=== PATIENT | female | born 1990 | race Caucasian/White ===

== ENCOUNTER 2021-05-02 12:16 | Outpatient (REF) | payer OTHER, SELFPAY ==
[2021-05-02 15:47] LABS: Alanine Aminotransferase 17 U/L (0-31); Anion Gap 15 (12-20); Aspartate Amino Transferase 18 U/L (5-31); Blood Urea Nitrogen 9 mg/dL (9-16); Calcium 9.3 mg/dL (8.4-10.2); Carbon Dioxide 25 mmol/L (22-29); Chloride 103 mmol/L (96-108); Cholesterol 178 mg/dL; Estimated Average Glucose 117 mg/dL; Estimated Glomerular Filt Rate > 60; Glucose Fasting 100 mg/dL (60-99); HDL Cholesterol 52 mg/dL; Hemoglobin A1c % 5.7 %; LDL Cholesterol Calculated 102 mg/dl; Potassium 4.6 mmol/L (3.3-5.1); Sodium 138 mmol/L (135-145); Triglycerides 120 mg/dL
[2021-05-02 16:11] LABS: Vitamin D 25-OH Total 32.1 ng/mL (>30)
== END 2021-05-02 12:17 | disposition home or self-care (01) ==
LOC: HO.HMGCLDS 12:16
PROVIDERS: PCP Internal Medicine; Visit Provider Internal Medicine
DX: Z00.00 Encounter for general adult medical examination without abnormal findings (principal); E66.9 Obesity, unspecified; I10 Essential (primary) hypertension; R73.01 Impaired fasting glucose
CPT/HCPCS: 36415; 80048; 80061; 82306; 83036; 84450; 84460

== ENCOUNTER 2021-09-12 12:56 | Outpatient (REF) | payer OTHER, SELFPAY ==
--- NOTE | ~2021-09-12 | XR_ITS ---
EXAMINATION: XR CHEST CLINICAL INFORMATION: R05.9 - Cough, unspecified COMPARISON: None TECHNIQUE: 2 views of the chest were obtained. FINDINGS: The lungs are clear. There is no airspace consolidation or groundglass opacity or effusion. The costophrenic sulci are well-defined. The heart is normal in size. The hilar and mediastinal contours and visualized bony structures are unremarkable. XR/XR chest 2V IMPRESSION: Unremarkable examination.
== END 2021-09-12 12:57 | disposition home or self-care (01) ==
LOC: HO.HMGCX 12:56
PROVIDERS: PCP Internal Medicine; Visit Provider Physician Assistant Medical
DX: R05.9 Cough, unspecified (principal)
CPT/HCPCS: 71046

== ENCOUNTER 2021-09-12 13:42 | Outpatient (REF) | payer OTHER, SELFPAY ==
[2021-09-12 17:19] LABS: Influenza A PCR NEGATIVE (Negative); Influenza B PCR NEGATIVE (Negative); Resp Syncy Virus RNA Qual PCR NEGATIVE (Negative); SARS COV2 PCR INHOUSE NEGATIVE (Negative)
== END 2021-09-12 13:43 | disposition home or self-care (01) ==
LOC: HO.LAB 13:42
PROVIDERS: Visit Provider Physician Assistant Medical
DX: Z20.822 Contact with and (suspected) exposure to COVID-19 (principal); J06.9 Acute upper respiratory infection, unspecified; R05.9 Cough, unspecified
CPT/HCPCS: 0241U; 36415

== ENCOUNTER 2022-05-04 11:59 | Outpatient (REF) | payer OTHER, SELFPAY ==
[2022-05-04 13:44] LABS: MANUAL DIFF FLAG NO
[2022-05-04 13:57] LABS: Basophils Absolute Auto 0.1 X10*3/uL (0.0-0.2); Basophils Percent Auto 0.6 % (0-2); Eosinophils Absolute Auto 0.2 X10*3/uL (0.0-0.4); Eosinophils Percent Auto 1.8 % (0-4); Hematocrit 36.7 % (37.0-47.0); Hemoglobin 12.1 g/dl (12.0-16.0); Imm Gran Abs Auto 0.05 X10*3/uL (0.00-0.03); Imm Gran Pct Auto 0.5 % (0.0-0.4); Lymphocytes Percent Auto 28.6 % (20-40); Mean Corpuscular Hemoglobin 28.5 pg (27.0-33.0); Mean Corpuscular Volume 86.4 fL (80.0-98.0); Mean Platelet Volume 11.6 fL (9.4-12.3); Monocytes Absolute Auto 0.6 X10*3/uL (0.1-1.2); Monocytes Percent Auto 5.5 % (2-11); Neutrophils Absolute Auto 6.5 x10*3/uL (2.0-8.3); Platelet Count 363 X10*3/uL (160-400); Red Blood Count 4.25 X10*6/uL (4.20-5.50); Red Cell Distribution Width 11.7 % (11.0-16.0); White Blood Count 10.4 X10*3/uL (4.8-10.8)
[2022-05-04 14:05] LABS: Estimated Average Glucose 123 mg/dL; Hemoglobin A1c % 5.9 %
[2022-05-04 14:22] LABS: Alanine Aminotransferase 17 U/L (0-31); Anion Gap 11 (12-20); Aspartate Amino Transferase 20 U/L (5-31); Blood Urea Nitrogen 9 mg/dL (9-16); Calcium 8.9 mg/dL (8.4-10.2); Carbon Dioxide 26 mmol/L (22-29); Chloride 106 mmol/L (96-108); Cholesterol 167 mg/dL; Estimated Glomerular Filt Rate > 60; Glucose Fasting 97 mg/dL (60-99); HDL Cholesterol 42 mg/dL; LDL Cholesterol Calculated 102 mg/dl; Potassium 4.3 mmol/L (3.3-5.1); Sodium 139 mmol/L (135-145); Triglycerides 117 mg/dL
[2022-05-06 11:36] LABS: Follicle Stimulating Hormone 2.8 mIU/mL; Lutenizing Hormone 1.7 mIU/mL
== END 2022-05-04 12:00 | disposition home or self-care (01) ==
LOC: HO.HMGCLDS 11:59
PROVIDERS: PCP Internal Medicine; Visit Provider Internal Medicine
DX: Z00.01 Encounter for general adult medical examination with abnormal findings (principal); R00.0 Tachycardia, unspecified; E66.09 Other obesity due to excess calories; R73.01 Impaired fasting glucose; N92.6 Irregular menstruation, unspecified; F41.8 Other specified anxiety disorders; Z68.36 Body mass index [BMI] 36.0-36.9, adult
CPT/HCPCS: 36415; 80048; 80061; 83001; 83002; 83036; 84443; 84450; 84460; 85025

== ENCOUNTER 2024-04-27 07:42 | Outpatient (AMB) | payer OTHER, SELFPAY ==
--- NOTE | 2024-04-27 07:55 | MHC.PC.OV ---
Vital Signs 04/27/24 07:56 Height 5 ft 3 in Weight 222 lb BMI 39.3 BP 118/86 Blood Pressure Location Rt brachial Position Sitting Pulse 110 H Pulse Source Pulse Oximeter Pulse Oximetry (%) 98 Oxygen Delivery Method Room Air Intake Visit Reasons: Physical Exam Intake Note: Pt is here today for her PE: last papsmear 01/14/24 Is last menstrual period known: Yes Last menstrual period: 04/23/24 Allergies aripiprazole [From Abilify] Adverse Reaction (Verified 04/27/24 08:14) Insomnia Medication List - Last Reconciled 04/27/24 by Dunia Sebastian MD drospirenone-e.estradiol-lm.FA 3-0.02-0.451 mg (24) (4) 1 tab PO DAILY fluvoxamine 100 mg PO BEDTIME multivitamin 1 tab PO DAILY psyllium husk (Metamucil) 0.4 grams PO DAILY quetiapine mg PO Saccharomyces boulardii (Daily Probiotic (S. boulardii)) 250 mg PO BID sodium fluoride-pot nitrate 1.1-5 % PO Tobacco use date assessed: 04/27/24 Dental Screening Dental Screen Date: 04/27/24 Did you have a dental visit in the last 12 months?: Yes Did you have a dental problem in the last 6 months where you did not have access to dental care?: Yes Was dental information given to patient?: Patient has dentist HPI Physical Exam HPI Details 34-year-old lady here today for physical exam. She has history of impaired fasting glucose, obesity, generalized anxiety disorder, followed by her Psychiatrist, Joann sheffield. She is up-to-date with her screening for cervical cancer, last Pap done 12/2023 by Rani Skelton CNM at [facility].. She still has been having severe pain and discomfort when having vaginal exam, she has been referred by her [facility] to see Magdalena mancera , a Pelvic Floor Physical Therapist at [facility] . She also has a lesion on her nose which has been present for the last several months and seems to be changing in appearance. She also has been having appearance of several painful skin tags usually in armpits, which she would like to have checked. Requesting a referral to [facility] Medical History (Updated 04/28/24 @ 02:55 by Dunia Sebastian MD) Elevated fasting glucose Generalized anxiety disorder Chronic pelvic pain syndrome in female Menstrual periods irregular Tachycardia Impaired fasting glucose Obesity History of urinary urgency Surgical History No pertinent past surgical history Family History Father Depression Substance use disorder Mental health disorder Sister Depression Mental health disorder Maternal Grandmother Depression Mental health disorder Maternal Grandfather Diabetes mellitus Social History (Updated 04/30/24 @ 05:10 by Dunia Sebastian MD) Housing: Apartment Alcohol intake: current Patient Tobacco Use Status: Never used Tobacco e-Cigarette/Vaping Use: Never Used service: No Current occupational status: employed Current occupation: [employer] Current occupational exposures/hazards: No Cognitive needs: No Hearing needs: No Vision needs: No Female Reproductive History Menstrual Date of last menstrual period: 04/23/24 Date of last pap smear: 01/14/24 Questionnaire PHQ-9 Over the last 2 weeks, how often have you been bothered by any of the following problems? 1. Little interest or pleasure in doing things: not at all 2. Feeling down, depressed, or hopeless: not at all 3. Trouble falling or staying asleep, or sleeping too much: several days 4. Feeling tired or having little energy: several days 5. Poor appetite or overeating: several days 6. Feeling bad about yourself - or that you are a failure or have let yourself or your family down: not at all 7. Trouble concentrating on things, such as reading the newspaper or watching television: not at all 8. Moving or speaking so slowly that other people could have noticed. Or the opposite - being so fidgety or restless that you have been moving around a lot more than usual: not at all 9. Thoughts that you would be better off or of hurting yourself in some way: not at all Total score: 3 Depression Screening Interpretation: Negative Depression Screening Done: Yes 14982 - PHQ-9 Billing: Yes Source: Developed by Drs. Jerzy Holguin, Tanisha Babin, Froylan Joshi and colleagues, with an educational tammi from [employer]. Thrive Questionnaire Date Thrive assessed: 04/27/24 I am a: Patient What is your living situation today?: I have a steady place to live Within the past 12 months, did the food you bought not last and you didn't have the money to get more?: Never true Within the past 12 months, did you worry whether your food would run out before you got money to buy more?: Never true Do you have trouble paying for medicines?: No Do you have trouble getting transportation to medical appointments?: No Do you have trouble paying your heating and electricity bill?: No Do you have trouble taking care of your child, family member or friend?: No Do you have trouble with day-to-day activities such as bathing, preparing meals, shopping, managing finances, etc.?: No Are you currently unemployed and looking for a job?: No Are you interested in more education?: No THRIVE Score: 0 AUDIT C Alcohol Use Questionnaire (AUDIT-C) 1. How often do you have a drink containing alcohol?: Never Total Score: 0 BARBRA-7 AMB Questionnaire BARBRA-7 Date BARBRA - 7 assessed: 04/27/24 Feeling nervous, anxious, or on edge: 2 = More than half the days Not being able to stop or control worryin = Several days Worrying too much about different things: 1 = Several days Trouble relaxin = Several days Being so restless that it is hard to sit still: 0 = Not at all Becoming easily annoyed or irritable: 1 = Several days Feeling afraid as if something awful might happen: 1 = Several days Total BARBRA-7 score (0-4 normal; 5-9 mild; 10-14 moderate; 15-21 severe): 7 Source: Developed by Drs. Jerzy Holguin, Froylan Nichole and colleagues, with an educational tammi from [employer]. BARBRA-7 Assessment Billing BARBRA-7 Assessment Tool: BARBRA-7 Assessment 57009 (followed by psychiatry) Review of Systems Const Denies body aches, Denies fatigue, Denies fever(s), Denies headache(s) and Denies weakness Eyes Denies change in vision, Denies eye discharge and Denies itchy eyes ENT Denies dizziness, Denies headache(s), Denies nasal congestion, Denies nasal discharge and Denies sore throat Card Denies chest pain, Denies lightheadedness, Denies palpitations (only when going to doctor's appointments ) and Denies dyspnea Resp Denies chest congestion, Denies cough, Denies dyspnea and Denies wheezing GI Denies abdominal pain, Denies change in bowel habits and Denies heartburn Denies hematuria, Denies urinary frequency, Denies dysuria and Denies urinary urgency Musc Reports no additional complaints Skin/Breast Reports as per HPI, Denies breast pain, Denies breast mass, Denies lesions and Denies rash Neuro Denies dizziness, Denies headache(s) and Denies weakness Psych Reports as per HPI Endo Denies fatigue, Denies polydipsia, Denies polyuria and Denies palpitations (only when going to doctor's appointments ) Sathish/Lymph Denies easy bruising Aller/Immun Denies itchy eyes, Denies seasonal rhinorrhea and Denies wheezing Physical exam (Primary Care) Vital Signs: Last Vital Signs Pulse 110 H 04/27/24 07:56 BP 118/86 04/27/24 07:56 Pulse Ox 98 04/27/24 07:56 Oxygen Delivery Method Room Air 04/27/24 07:56 BMI result Body Mass Index 39.3 Tobacco/Smoking Status: Tobacco use Status Tobacco use date assessed 04/27/24 04/27/24 08:01 Patient Tobacco Use Status Never used Tobacco 04/27/24 07:56 e-Cigarette/Vaping Use Never Used 04/27/24 07:56 PHQ-9: PHQ-9 Score PHQ-9: Total score 3 04/27/24 08:35 Depression Screening Interpretation: Negative Thrive Assessment: Date of Thrive Assessment Date Thrive assessed 04/27/24 04/27/24 08:08 Const General: cooperative, comfortable and no acute distress Nutritional Appearance: obese Orientation/consciousness: patient oriented x3 HENMT Ears: hearing grossly normal bilaterally, external ears normal, TM's normal bilaterally and EAC's normal General nose exam: Normal external nose present and No nasal discharge present Mouth: Normal oral and palatal mucosa present, oropharynx normal and moist mucous membranes Throat: Yes posterior oropharynx normal Eyes General: appearance normal, both eyes and all related structures Conjunctivae: conjunctivae normal Pupils: Equal, round and reactive pupils present EOM: EOMs intact bilaterally Neck Neck: Yes full ROM, Yes no lymphadenopathy and Yes supple Chest Chest palpation & inspection: normal inspection of the chest Breast/axilla inspection: normal inspection of the breasts Breast/axilla palpation: normal palpation of the breasts Resp Effort & Inspection: normal respiratory effort and able to speak in complete sentences Auscultation: clear to auscultation bilaterally Cardio Rate: regular rate Rhythm: regular rhythm Heart sounds: S1 normal heart sound present and S2 normal heart sound present GI Inspection: Yes normal to inspection Palpation (GI): Soft to palpation, nontender and no masses Auscultation: normal bowel sounds General: Yes deferred Back/Spine/Pelvis Cervical Spine: cervical ROM normal Thoracic/Lumbar Spine: thoracic and lumbar spine normal to inspection Skin Other: Slightly raised lesion on nose Neuro General: patient oriented x3, gait normal, tone normal, moves all extremities, Normal light touch and pain sensation and no focal motor deficits Cranial nerves: Yes Equal, round and reactive pupils present Cognition (Neuro): normal cognition Gait exam (Neuro): Normal gait present Motor exam (neuro): 5/5 motor strength present throughout Extrem General: Yes normal to inspection, Yes full ROM, Yes no joint enlargement, Yes no pedal edema and Yes normal gait Psych Appearance: grossly normal Mental Status: mental status grossly normal Speech and movement: Normal speech and movement present Affect: normal affect Attitude: cooperative Thought process: Normal thought process present Assessment and Plan Assessment & Plan (1) Chronic pelvic pain syndrome in female: Code(s): R10.2 - Pelvic and perineal pain; G89.29 - Other chronic pain Plan: Referral made to see pelvic floor physical therapist , Magdalena Mancera at [facility] (2) Obesity: Code(s): E66.9 - Obesity, unspecified Qualifiers: Body mass index: BMI 36.0-36.9 Obesity classification: adult class 2 (BMI 35 - 39.9) Obesity type: due to excess calories Serious obesity comorbidity presence: without serious comorbidity Qualified Code(s): E66.09 - Other obesity due to excess calories; Z68.36 - Body mass index [BMI] 36.0-36.9, adult Plan: Referred to vacuum caster for guidance with diet help with weight loss (3) Tachycardia: Code(s): R00.0 - Tachycardia, unspecified Plan: Self-limited, only occurs during doctor's appointment (4) Generalized anxiety disorder: Code(s): F41.1 - Generalized anxiety disorder Plan: Currently on fluvoxamine, quetiapine, , followed by Joann Sheffield (5) Annual visit for general adult medical examination with abnormal findings: Code(s): Z00.01 - Encounter for general adult medical examination with abnormal findings Plan: Will check appropriate labs. Continue regular dental visit every 6 months and regular eye exams, at least every 2 years. Take adequate calcium in diet and vitamin-D 3 at 2000 IU per cap once a day, in addition to weight-bearing exercises to help maintain good muscle tone and weight control. Instructed to do self-breast exam, and recommended to get yearly mammogram, starting at age 40. Up-to-date with her vaccinations, gets yearly flu shots (6) Immunity status testing: Code(s): Z01.84 - Encounter for antibody response examination Plan: Will check hepatitis-B surface antibody titer (7) Lesion of skin of nose: Code(s): L98.9 - Disorder of the skin and subcutaneous tissue, unspecified Plan: Dermatology consult ordered (8) Screening for Malignant Neoplasm of Skin: Code(s): Z12.83 - Encounter for screening for malignant neoplasm of skin Plan: Dermatology consult ordered (9) Inflamed skin tag: Code(s): L91.8 - Other hypertrophic disorders of the skin Plan: Dermatology consult ordered Orders: Orders Comprehensive [place]. Panel Fast 04/27/24 E66.09 - Other obesity due to excess calories, F41.1 - Generalized anxiety disorder, G89.29 - Other chronic pain, R00.0 - Tachycardia, unspecified, R10.2 - Pelvic and perineal pain, R73.01 - Impaired fasting glucose, Z00.01 - Encounter for general adult medical examination with abnormal findings, Z68.36 - Body mass index [BMI] 36.0-36.9, adult Hemoglobin and Hematocrit 04/27/24 E66.09 - Other obesity due to excess calories, F41.1 - Generalized anxiety disorder, G89.29 - Other chronic pain, R00.0 - Tachycardia, unspecified, R10.2 - Pelvic and perineal pain, R73.01 - Impaired fasting glucose, Z00.01 - Encounter for general adult medical examination with abnormal findings, Z68.36 - Body mass index [BMI] 36.0-36.9, adult Hepatitis B Surface Antibody 04/27/24 Z01.84 - Encounter for antibody response examination Lipid Panel 04/27/24 E66.09 - Other obesity due to excess calories, F41.1 - Generalized anxiety disorder, G89.29 - Other chronic pain, R00.0 - Tachycardia, unspecified, R10.2 - Pelvic and perineal pain, R73.01 - Impaired fasting glucose, Z00.01 - Encounter for general adult medical examination with abnormal findings, Z68.36 - Body mass index [BMI] 36.0-36.9, adult Referrals [facility] Referral G89.29 - Other chronic pain, R10.2 - Pelvic and perineal pain Dermatology Referral L91.8 - Other hypertrophic disorders of the skin, L98.9 - Disorder of the skin and subcutaneous tissue, unspecified, Z12.83 - Encounter for screening for malignant neoplasm of skin Coding Level of Care Code Est Pt Prev Care 18-39y([id number]) Diagnoses Chronic pelvic pain syndrome in female R10.2; G89.29 Class 2 obesity due to excess calories without serious comorbidity with body mass index (BMI) of 36.0 to 36.9 in adult E66.09; Z68.36 Body mass index: BMI 36.0-36.9 Obesity classification: adult class 2 (BMI 35 - 39.9) Obesity type: due to excess calories Serious obesity comorbidity presence: without serious comorbidity Tachycardia R00.0 Generalized anxiety disorder F41.1 Annual visit for general adult medical examination with abnormal findings Z00. Immunity status testing Z01.84 Lesion of skin of nose L98.9 Screening for Malignant Neoplasm of Skin Z12.83 Inflamed skin tag L91.8 Additional Codes BARBRA-7 Assessment Billing - BARBRA-7 Assessment Tool: BARBRA-7 Assessment 85602 ([id number])
[2024-04-27 07:56] VITALS: BP 118/86; PULSE 110; O2SAT 98; BMI 39.3
== END 2024-04-27 08:51 | disposition home or self-care (01) ==
PROVIDERS: PCP Internal Medicine; Visit Provider Internal Medicine
DX: Z00.00 Encounter for general adult medical examination without abnormal findings (principal); R10.2 Pelvic and perineal pain; Z68.36 Body mass index [BMI] 36.0-36.9, adult; E66.09 Other obesity due to excess calories; G89.29 Other chronic pain; R00.0 Tachycardia, unspecified; F41.1 Generalized anxiety disorder; Z01.84 Encounter for antibody response examination; L98.9 Disorder of the skin and subcutaneous tissue, unspecified; Z12.83 Encounter for screening for malignant neoplasm of skin; L91.8 Other hypertrophic disorders of the skin
CPT/HCPCS: 99395

== ENCOUNTER 2024-04-27 08:54 | Outpatient (REF) | payer OTHER, SELFPAY ==
[2024-04-27 10:22] LABS: Hematocrit 38.9 % (37.0-47.0); Hemoglobin 12.7 g/dl (12.0-16.0)
[2024-04-27 10:57] LABS: Alanine Aminotransferase 23 U/L (0-31); Albumin Level 3.9 g/dL (3.5-5.0); Alkaline Phosphatase 58 U/L (39-117); Anion Gap 13 (12-20); Aspartate Amino Transferase 23 U/L (5-31); Bilirubin Total 0.2 mg/dL (0.0-1.0); Blood Urea Nitrogen 11 mg/dL (9-16); Carbon Dioxide 23 mmol/L (22-29); Chloride 106 mmol/L (96-108); Cholesterol 157 mg/dL (<200); Estimated Glomerular Filt Rate > 60; Glucose Fasting 149 mg/dL (60-99); HDL Cholesterol 51 mg/dL (>40); LDL Cholesterol Calculated 82 mg/dL (<100); Potassium 4.3 mmol/L (3.3-5.1); Sodium 138 mmol/L (135-145); Total Protein 7.8 g/dL (6.5-8.0); Triglycerides 122 mg/dL (<150)
[2024-04-27 11:12] LABS: HBS Num1 1.24 mIU/mL (0-7.99); ~Hepatitis B Surface Antibody NONREACTIVE (Nonreactive)
== END 2024-04-27 08:55 | disposition home or self-care (01) ==
LOC: HO.HMGCLDS 08:54
PROVIDERS: PCP Internal Medicine; Visit Provider Internal Medicine
DX: Z00.01 Encounter for general adult medical examination with abnormal findings (principal); R10.2 Pelvic and perineal pain; G89.29 Other chronic pain; R73.01 Impaired fasting glucose; E66.09 Other obesity due to excess calories; Z68.36 Body mass index [BMI] 36.0-36.9, adult; R00.0 Tachycardia, unspecified; F41.1 Generalized anxiety disorder; Z01.84 Encounter for antibody response examination
CPT/HCPCS: 36415; 80053; 80061; 85014; 85018; 86706

== ENCOUNTER 2024-05-06 09:36 | Outpatient (REF) | payer OTHER, SELFPAY ==
[2024-05-06 11:49] LABS: Glucose Fasting 131 mg/dL (60-99)
[2024-05-06 11:53] LABS: Estimated Average Glucose 128 mg/dL; Hemoglobin A1c % 6.1 % (<6.0)
== END 2024-05-06 09:37 | disposition home or self-care (01) ==
LOC: HO.HMGCLDS 09:36
PROVIDERS: PCP Internal Medicine; Visit Provider Internal Medicine
DX: R73.01 Impaired fasting glucose (principal)
CPT/HCPCS: 36415; 82947; 83036

== ENCOUNTER 2024-09-01 08:50 | Outpatient (AMB) | payer OTHER, SELFPAY ==
--- NOTE | 2024-09-01 08:46 | A.OFFPC_ITS ---
Intake Visit Reasons: discuss psych I phone [phone] Allergies aripiprazole [From Yasmani] Adverse Reaction (Verified 09/01/24 09:04) Insomnia Medication List - Last Reconciled 09/01/24 by Dunia Sebastian MD drospirenone-e.estradiol-lm.FA 3-0.02-0.451 mg (24) (4) 1 tab PO DAILY fluvoxamine 100 mg PO BEDTIME multivitamin 1 tab PO DAILY psyllium husk (Metamucil) 0.4 grams PO DAILY quetiapine mg PO BEDTIME Saccharomyces boulardii (Daily Probiotic (S. boulardii)) 250 mg PO BID sodium fluoride-pot nitrate 1.1-5 % PO Tobacco use date assessed: 04/27/24 Dental Screening Dental Screen Date: 09/01/24 Did you have a dental visit in the last 12 months?: Yes Did you have a dental problem in the last 6 months where you did not have access to dental care?: No Was dental information given to patient?: Patient has dentist HPI discuss psych I phone [phone] HPI Details BARBRA HPI Comments History of Present Illness Details 34-year-old lady with generalized anxiet y disorder, who was seeing Joann Gómez since 2019 and have made a lot of progress with her treatment, currently on fluoxetine and quetiapine at bedtime. Unfortunately, she discovered in late May that her insurance plan will not cover her services, and in the past few months, has been paying $250 per appointment which she states she cannot afford to keep paying out of pocket. She is switching to a new insurance late spring, and has been trying to get an appointment with a new psychiatrist but has been placed on a wait list to see one at present time. She is seeking help in finding a new psychiatrist, and see if she can get her prescriptions refilled until the time that she can get seen on a regular basis. At present she has enough medicine to last her until the beginning of October 2024. Has tried several combinations of meds in the past but, she states that her anxiety is well controlled on fluoxetine and quetiapine at current dose. [facility] Medical History Elevated fasting glucose Generalized anxiety disorder Chronic pelvic pain syndrome in female Menstrual periods irregular Tachycardia Impaired fasting glucose Obesity History of urinary urgency Surgical History No pertinent past surgical history Family History Father Depression Substance use disorder Mental health disorder Sister Depression Mental health disorder Maternal Grandmother Depression Mental health disorder Maternal Grandfather Diabetes mellitus Social History Housing: Apartment Alcohol intake: current Patient Tobacco Use Status: Never used Tobacco e-Cigarette/Vaping Use: Never Used service: No Current occupational status: employed 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 Current occupational exposures/hazards: No Cognitive needs: No Hearing needs: No Vision needs: No Questionnaire Thrive Questionnaire Date Thrive assessed: 04/27/24 BARBRA-7 AMB Questionnaire BARBRA-7 Date BARBRA - 7 assessed: 09/01/24 Feeling nervous, anxious, or on edge: 1 = Several days Not being able to stop or control worryin = Not at all Worrying too much about different things: 1 = Several days Trouble relaxin = Not at all Being so restless that it is hard to sit still: 0 = Not at all Becoming easily annoyed or irritable: 1 = Several days Feeling afraid as if something awful might happen: 0 = Not at all Total BARBRA-7 score (0-4 normal; 5-9 mild; 10-14 moderate; 15-21 severe): 3 Source: Developed by Drs. Jerzy Holguin, Tanisha Babin, Froylan Joshi and colleagues, with an educational tammi from [employer]. BARBRA-7 Assessment Billing BARBRA-7 Assessment Tool: BARBRA-7 Assessment 96638 Review of Systems Const Denies body aches, Denies fatigue and Denies headache(s) Eyes Denies change in vision ENT Denies dizziness, Denies headache(s), Denies nasal congestion, Denies nasal discharge and Denies sore throat Card Denies chest pain, Denies lightheadedness, Denies palpitations (only when going to doctor's appointments ) and Denies dyspnea Resp Denies chest congestion, Denies cough, Denies dyspnea and Denies wheezing GI Denies abdominal pain, Denies change in bowel habits and Denies heartburn Denies urinary frequency, Denies dysuria and Denies urinary urgency Musc Reports no additional complaints Skin/Breast Reports as per HPI, Denies breast pain, Denies breast mass, Denies lesions and Denies rash Neuro Denies dizziness and Denies headache(s) Psych Reports as per HPI Endo Denies fatigue, Denies polydipsia, Denies polyuria and Denies palpitations (only when going to doctor's appointments ) Aller/Immun Denies seasonal rhinorrhea and Denies wheezing Physical exam (Primary Care) Tobacco/Smoking Status: Tobacco use Status Tobacco use date assessed 04/27/24 09/01/24 08:48 Patient Tobacco Use Status Never used Tobacco 09/01/24 08:48 e-Cigarette/Vaping Use Never Used 09/01/24 08:48 Thrive Assessment: Date of Thrive Assessment Date Thrive assessed 04/27/24 09/01/24 08:48 Telehealth Telehealth [facility] Location of provider rendering services: practice address Location of patient: address on file Patient Identification confirmed using: Name, : Yes Telehealth method: video Patient verbally consented to treatment: Yes Patient verbally consented to billing insurance company: Yes Patient informed of any privacy concerns related to visit: Yes Minutes spent on Phone/Video with Pt.: 15 Coding Level of Care Code Tele Est Pt Level 3 (37482) Diagnoses Generalized anxiety disorder F41.1 Additional Codes BARBRA-7 Assessment Billing - BARBRA-7 Assessment Tool: BARBRA-7 Assessment 71741 ([id number]) Assessment & Plan Assessment & Plan (1) Generalized anxiety disorder: Code(s): F41.1 - Generalized anxiety disorder Category: Medical Plan: Currently stable on fluvoxamine and quetiapine at current dose, will refer to Sandee Arroyo for assistance in getting in to see a new psychiatrist. Has enough meds until the beginning of October 2024
== END 2024-09-01 09:38 | disposition home or self-care (01) ==
LOC: HO.HMCC 08:50
PROVIDERS: PCP Internal Medicine; Visit Provider Internal Medicine
DX: F41.1 Generalized anxiety disorder (principal)

== ENCOUNTER → 2024-09-01 08:50 | Outpatient (BNVA) | payer OTHER, SELFPAY | PROVIDERS: PCP Internal Medicine; Visit Provider Internal Medicine | DX: F41.1 Generalized anxiety disorder (principal) | CPT/HCPCS: 96127 ==

== ENCOUNTER 2025-02-09 08:57 | Outpatient (AMB) | payer OTHER, SELFPAY ==
--- NOTE | 2025-02-09 08:58 | A.OFFPC_ITS ---
Intake Visit Reasons: discuss referral I phone Allergies aripiprazole [From Abilify] Adverse Reaction (Verified 09/01/24 09:04) Insomnia Medication List - Last Reconciled 02/09/25 by Dunia Sebastian MD desvenlafaxine succinate ER 25 mg PO DAILY drospirenone-e.estradiol-lm.FA 3-0.02-0.451 mg (24) (4) 1 tab PO DAILY lemborexant (Dayvigo) 10 mg PO DAILY magnesium glycinate 200 mg PO BEDTIME multivitamin 1 tab PO DAILY psyllium husk (Metamucil) 0.4 grams PO DAILY Saccharomyces boulardii (Daily Probiotic (S. boulardii)) 250 mg PO BID sodium fluoride-pot nitrate 1.1-5 % PO Tobacco use date assessed: 02/09/25 Dental Screening Dental Screen Date: 02/09/25 Did you have a dental visit in the last 12 months?: Yes Did you have a dental problem in the last 6 months where you did not have access to dental care?: No Was dental information given to patient?: Patient has dentist HPI discuss referral I phone HPI Details Telehealth visit made with 74-year-old lady with history of generalized anxiety disorder and chronic insomnia, [facility] who has had challenges in managing her symptoms due to significant drug sensitivities and has completed gene testing to support her treatment. She has had several trials with medications to help treat her insomnia, namely hydroxyzine for which he developed severe paradoxical reaction/agitation; trazodone, lorazepam, Lunesta where she developed severe bitter taste and paradoxical alertness while taking the medication. She also has tried Seroquel, Ambien which she stopped only for 1 day, could not remember what kind of reaction she had to the medication however. She was not tried on Remeron as she does not want to risk any weight gain on the medication. She also has tried Prozac, Luvox, Abilify all of which has not been effective. She is requesting to have a formal sleep study done. She patient states that she has had 1 in the past several years ago which came back negative. At that time however patient states that she was not really able to sleep during the test. [facility] Medical History (Updated 02/12/25 @ 04:53 by Dunia Sebastian MD) Chronic insomnia Sleeping difficulties Elevated fasting glucose Generalized anxiety disorder Chronic pelvic pain syndrome in female Menstrual periods irregular Tachycardia Impaired fasting glucose Obesity History of urinary urgency Surgical History No pertinent past surgical history Family History Father Depression Substance use disorder Mental health disorder Sister Depression Mental health disorder Maternal Grandmother Depression Mental health disorder Maternal Grandfather Diabetes mellitus Social History Housing: Apartment Alcohol intake: current Patient Tobacco Use Status: Never used Tobacco e-Cigarette/Vaping Use: Never Used service: No Current occupational status: employed Current occupation: [employer] Current occupational exposures/hazards: No Cognitive needs: No Hearing needs: No Vision needs: No Questionnaire PHQ-9 Over the last 2 weeks, how often have you been bothered by any of the following problems? 1. Little interest or pleasure in doing things: not at all 2. Feeling down, depressed, or hopeless: not at all 3. Trouble falling or staying asleep, or sleeping too much: more than half the days 4. Feeling tired or having little energy: more than half the days 5. Poor appetite or overeating: more than half the days 6. Feeling bad about yourself - or that you are a failure or have let yourself or your family down: several days 7. Trouble concentrating on things, such as reading the newspaper or watching television: not at all 8. Moving or speaking so slowly that other people could have noticed. Or the opposite - being so fidgety or restless that you have been moving around a lot more than usual: not at all 9. Thoughts that you would be better off or of hurting yourself in some way: not at all Total score: 7 Depression Screening Interpretation: Negative Depression Screening Done: Yes 70627 - PHQ-9 Billing: Yes Source: Developed by Drs. Jerzy Holguin, Tanisha Babin, Froylan Joshi and colleagues, with an educational tammi from [employer]. Thrive Questionnaire Date Thrive assessed: 02/09/25 I am a: Patient What is your living situation today?: I have a steady place to live Within the past 12 months, did the food you bought not last and you didn't have the money to get more?: Never true Within the past 12 months, did you worry whether your food would run out before you got money to buy more?: Never true Do you have trouble paying for medicines?: No Do you have trouble getting transportation to medical appointments?: No Do you have trouble paying your heating and electricity bill?: No Do you have trouble taking care of your child, family member or friend?: No Do you have trouble with day-to-day activities such as bathing, preparing meals, shopping, managing finances, etc.?: No Are you currently unemployed and looking for a job?: No Are you interested in more education?: No THRIVE Score: 0 AUDIT C Alcohol Use Questionnaire (AUDIT-C) 1. How often do you have a drink containing alcohol?: Never 2. How many drinks containing alcohol do you have on a typical day when you are drinking?: 1 or 2 3. How often do you have six or more drinks on one occasion?: Never Total Score: 0 BARBRA-7 AMB Questionnaire BARBRA-7 Date BARBRA - 7 assessed: 02/09/25 Feeling nervous, anxious, or on edge: 2 = More than half the days Not being able to stop or control worryin = Several days Worrying too much about different things: 1 = Several days Trouble relaxin = Several days Being so restless that it is hard to sit still: 1 = Several days Becoming easily annoyed or irritable: 1 = Several days Feeling afraid as if something awful might happen: 1 = Several days Total BARBRA-7 score (0-4 normal; 5-9 mild; 10-14 moderate; 15-21 severe): 8 Source: Developed by Drs. Jerzy Holguin, Tanisha Babin, Froylan Joshi and colleagues, with an educational tammi from [employer]. BARBRA-7 Assessment Billing BARBRA-7 Assessment Tool: BARBRA-7 Assessment 99135 (follllowed by Mikaela wagner) Review of Systems Const All systems reviewed & are unremarkable except as noted in HPI and below Physical exam (Primary Care) Tobacco/Smoking Status: Tobacco use Status Tobacco use date assessed 02/09/25 02/09/25 09:00 Patient Tobacco Use Status Never used Tobacco 02/09/25 09:00 e-Cigarette/Vaping Use Never Used 02/09/25 09:00 PHQ-9: PHQ-9 Score PHQ-9: Total score 7 02/09/25 09:35 Depression Screening Interpretation: Negative Thrive Assessment: Date of Thrive Assessment Date Thrive assessed 02/09/25 02/09/25 09:05 Telehealth Telehealth [facility]health [facility] Location of provider rendering services: practice address Location of patient: address on file Patient Identification confirmed using: Name, : Yes Telehealth method: video Patient verbally consented to treatment: Yes Patient verbally consented to billing insurance company: Yes Patient informed of any privacy concerns related to visit: Yes Minutes spent on Phone/Video with Pt.: 15 Coding Level of Care Code Tele Est Pt Level 4 (04665) Diagnoses Chronic insomnia F51.04 Additional Codes BARBRA-7 Assessment Billing - BARBRA-7 Assessment Tool: BARBRA-7 Assessment 57737 ([id number]) PHQ-9 - 92140 - PHQ-9 Billing: Yes ([id number]) Assessment & Plan Assessment & Plan (1) Chronic insomnia: Code(s): F51.04 - Psychophysiologic insomnia Category: Medical Plan: Referred initially for in home sleep study, but patient advised that if she is unable to sleep while doing the test or comes back inconclusive will need to refer her to the sleep Medicine Clinic for further evaluation and management. May take a Klonopin prior to doing the test to help initiate sleep Orders: Orders RT home sleep study 02/09/25 G47.9 - Sleep disorder, unspecified
--- OUTSIDE RECORDS SUMMARY | 2025-02-09 09:05 | XMS_ITS | Patient Health Record ---
Author Organization [facility] Address [address] [place] [address] Support Name Relationship Address Phone MADISYN MCCLURE Guarantor Unknown [phone] Reason For Referral No Information Medications Medication SIG (Take, Route, Fr equency, Duration) Notes Start Date End Date Status SEROquel 200MG 1 ORAL at bedtime for -3 [facility] 05/25/2012 Active FLUoxetine HCl 20MG 1 ORAL daily for -3 [facility] 05/25/2012 Active Kariva 0.15-0.02/0.01 1 ORAL daily for -3 [facility] 05/25/20 12 Active Problems Problem Type SNOMED Code ICD Code Onset Dates Problem Status W/U Status Risk Notes Problem Surveillance of oral contraception done ([id number]) Surveillance of previously prescribed contraceptive pill (V25.41) Active confirmed Diag Plan Of Treatment No Information Insurance Providers Payer Name Payer Address Payer Phone Subscriber Number Group Number Insured Name Patient Relationship to Insured Coverage Start Date Coverage End Date [employer] [address] [place] [id number] [phone] [id number] MADISYN MCCLURE Self - patient is the insured
== END 2025-02-09 09:43 | disposition home or self-care (01) ==
LOC: HO.HMCC 08:57
PROVIDERS: PCP Internal Medicine; Visit Provider Internal Medicine
DX: F51.04 Psychophysiologic insomnia (principal)

== ENCOUNTER → 2025-02-09 08:57 | Outpatient (BNVA) | payer OTHER, SELFPAY | PROVIDERS: PCP Internal Medicine; Visit Provider Internal Medicine | DX: F51.04 Psychophysiologic insomnia (principal) | CPT/HCPCS: 96127 ==

== ENCOUNTER 2025-04-19 07:48 | Outpatient (AMB) | payer OTHER, SELFPAY ==
--- OUTSIDE RECORDS SUMMARY | 2025-04-19 07:50 | XMS_ITS | Patient Health Record ---
Author Organization [facility] Address [address] [place] [address] Support Name Relationship Address Phone MADISYN MCCLURE Guarantor Unknown [phone] Reason For Referral No Information Medications Medication SIG (Take, Route, Fr equency, Duration) Notes Start Date End Date Status SEROquel 200MG 1 ORAL at bedtime; D uration: -3 [facility] 05/25/2012 Active FLUoxetine HCl 20MG 1 ORAL daily; Duration: -3 [facility] 05/2012 Active Kariva 0.15-0.02/0.01 1 ORAL daily; Duration: -3 [facility] 0 05/25/2012 Active Problems Problem Type SNOMED Code ICD Code Onset Dates Problem Status W/U Status Risk Notes Problem Surveillance of previously prescribed contraceptive pill (V25.41) Active confirmed Diag Plan Of Treatment No Information Insurance Providers Payer Name Payer Address Payer Phone Subscriber Number Group Number Insured Name Patient Relationship to Insured Coverage Start Date Coverage End Date [employer] [address] [place] [id number] MADISYN MCCLURE Self - patient is the insured
--- OUTSIDE RECORDS SUMMARY | 2025-04-19 07:50 | XMS_ITS | Patient Health Record ---
Author [facility] Address [address] [place] [address] Care Team Providers Care Pasteurizer Name Role Phone Romulo DONALDSON, Dunia Oviedo Primary Care Provider Un available Nakia Gonzalez Unavailable [phone] Allergies Allergen (clinical drug ingredient) Drug/Non Drug Allergy documented on EMR Reaction Allergy Type Onset Date Status abilify (uncoded) couldn't sleep Allergy Active Reason For Referral No Information Medications Medication SIG (Take, Route, Frequency, Duration) Notes Start Date End Date Status LORazepam 1 MG 1 tablet at bedtime as needed Orally Once a day Active Escitalopram Oxalate 20 MG 0.5 tablet Or ally Once a day Active Beyaz Active Social History Tobacco use other than smoking: Question Answer Notes Are you an other tobacco user? No Problems No Known Problems Plan Of Treatment Pending Test Test Name Order Date [id number] Plate 05/18/2016 Insurance Providers Payer Name Payer Address Payer Phone Subscriber Number Group Number Insured Name Patient Relationship to Insured Coverage Start Date Coverage End Date [place] [address] [place] [phone] [id number] Joycelyn Munguia Self - patient is the insured Medical (General) History Medical History History ICD Code Anxiety disorder Depression Headaches Migraines Chicken pox
[2025-04-19 07:52] VITALS: BP 120/86; PULSE 95; O2SAT 99; BMI 45.6
--- NOTE | 2025-04-19 07:52 | MHC.OFFVIS ---
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 She has had several trials with medications to help treat her insomnia, namely hydroxyzine for which he developed severe paradoxical reaction/agitation; trazodone, lorazepam, Lunesta where she developed severe bitter taste and paradoxical alertness while taking the medication. She also has tried Seroquel, Ambien which she stopped only for 1 day, could not remember what kind of reaction she had to the medication however. She was not tried on Remeron as she does not want to risk any weight gain on the medication. She also has tried Prozac, Luvox, Abilify all of which has not been effective. She is requesting to have a formal sleep study done. She patient states that she has had 1 in the past several years ago(over 10 years ago) which came back negative. At that time however patient states that she was not really able to sleep during the test. Patient states she does snore. mother and maternal grandmother both have sleep apnes. She also states she has gained lot of weight since test 10 years ago. Allergies kiwi Allergy (Unknown, Verified 04/19/25 07:59) Itching tree nut Allergy (Unknown, Verified 04/19/25 07:59) sore throat aripiprazole (From Abilify) Adverse Reaction (Verified 04/19/25 07:59) Insomnia HPI Comments Details: 35 year old female presents for sleep apnea referred to us by her pcp, Dr. Sebastian. 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 FH is + mood disorders, OCD behaviors and grandfather and mom cardiovascular issues along with diabetes. She has had difficulty with sleep for years, in under grad she was taking anxiety/ADHD meds to help her sleep, (prozac and then ambien). Now she is told she snores loudly, and tosses and turns all night, her BMI is elevated 45.6 and has tried various diets to lose weight. Gene testing shows meds which meds work best vs potential adverse reactions. She is working with a new psychiatrist now and continues to have parasomnias, sleep walking and talking. Her dentist has told her to f/u with sleep medicine, she grinds her teeth has an oral appliance, uses special toothpaste for enamel wear due to cavities. She has tried Lunesta, s/e metallic taste with water in her mouth would gag. Now she is on a protocol 5 nights Dayvigo 10mg, and 2 nights mid week, Wed and Klonipin 1mg. Even with meds onset of sleep is challenging usually by 4am and 5am she is getting to sleep and needs to wake up for work. 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 Seratonin Syndrome reaction with Trazadone, however was on several SSRIs in combination, eye twitch and hands weak with twitching and dropping things. Denies morning headaches, RLS symptoms. Her mood can fluctuate, and memory is stable. Does not smoke, drinks socially. [facility] Medical History ADHD Chronic insomnia Sleeping difficulties Elevated fasting glucose Generalized anxiety disorder Chronic pelvic pain syndrome in female Menstrual periods irregular Tachycardia Impaired fasting glucose Obesity History of urinary urgency Surgical History No pertinent past surgical history Family History Father Depression Substance use disorder Mental health disorder Sister Depression Mental health disorder Maternal Grandmother Depression Mental health disorder Maternal Grandfather Diabetes mellitus Social History Housing: Apartment Alcohol intake: current Patient Tobacco Use Status: Never used Tobacco e-Cigarette/Vaping Use: Never Used service: No Current occupational status: employed 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 Current occupational exposures/hazards: No Cognitive needs: No Hearing needs: No Vision needs: No Review of Systems Psych Reports anxiety and Reports difficulty concentrating Physical Exam Vital Signs: Last Vital Signs Pulse 95 04/19/25 07:52 BP 120/86 04/19/25 07:52 Pulse Ox 99 04/19/25 07:52 Oxygen Delivery Method Room Air 04/19/25 07:52 BMI result Body Mass Index 45.6 Obese, 257lbs, BMI is 45.6 and 5'3 Const General: cooperative and no acute distress Nutritional Appearance: obese Orientation/consciousness: patient oriented x3 HEENT Face and sinus: Yes face symmetric Teeth and gingiva: other ([place]ampti score of 4) Eyes Pupils: Equal, round and reactive pupils present Neck Other: shoulders are tight rigid. Resp Effort & Inspection: normal respiratory effort and able to speak in complete sentences Neuro General: patient oriented x3 and moves all extremities Cranial nerves: Yes Equal, round and reactive pupils present, Yes Normal accommodation reflex present, Yes Midline tongue present, Yes Ability to bilaterally rotate head present and Yes Ability to bilaterally elevate shoulders present Cognition (Neuro): normal cognition Gait exam (Neuro): Normal gait present Motor exam (neuro): 5/5 motor strength present throughout and Normal motor muscle tone present throughout Deep tendon reflexes (DTR's): Right triceps reflex intensity grade: 2+, Left triceps reflex intensity grade: 2+, Rt Biceps (C5, C6): 2+, Left biceps reflex intensity grade: 2+, Right brachioradialis reflex intensity grade: 2+, Left brachioradialis reflex intensity grade: 2+, Right patellar reflex intensity grade: 2+, Left patellar reflex intensity grade: 2+, Right ankle reflex intensity grade: 2+ and Left ankle reflex intensity grade: 2+ Coordination: [id number] test normal Psych Appearance: grossly normal Speech and movement: Normal speech and movement present Attitude: cooperative Thought process: Normal thought process present Thought content: Normal thought content present Insight: Good insight present (Psych) Results Reviewed Results Reviewed: Labs reviewd April 2024 A1c elevated 6.1 Fasting glucose is 138. EKG abnormal HR 115. Assessment & Plan Assessment & Plan (1) Excessive daytime sleepiness: Code(s): G47.19 - Other hypersomnia Category: Medical (2) Chronic insomnia: Code(s): F51.04 - Psychophysiologic insomnia Category: Medical (3) Generalized anxiety disorder: Code(s): F41.1 - Generalized anxiety disorder Category: Medical (4) History of sleep walking: Code(s): Z86.59 - Personal history of other mental and behavioral disorders Category: Medical Plan PSG to r/o TOMY with sleep walking/talking snoring behavior and BMI is over 45.6 Labs to r/o nutritional deficiencies chronic insomnia Currently on Klonipin Wed, , per [facility]. Dayvigo other 5 days per week. Meds she has trialed in the past for ADHD: Fluoxetine, Ramelteon, Lunesta, A1c is elevated to 6.1 and Fasting blood sugars 138 h/o PCOS F/u in 3 months will adjust meds as needed, and recommend Zepbound for weight loss and Insomnia. Orders: Orders Homocysteine Today F41.1 - Generalized anxiety disorder, F51.04 - Psychophysiologic insomnia, G47.19 - Other hypersomnia, G47.9 - Sleep disorder, unspecified, R53.83 - Other fatigue Methylmalonic Acid Today F41.1 - Generalized anxiety disorder, F51.04 - Psychophysiologic insomnia, G47.19 - Other hypersomnia, G47.9 - Sleep disorder, unspecified, R53.83 - Other fatigue Hemoglobin A1c Today F41.1 - Generalized anxiety disorder, F51.04 - Psychophysiologic insomnia, G47.19 - Other hypersomnia Complete Blood Count no Diff Today F41.1 - Generalized anxiety disorder, F51.04 - Psychophysiologic insomnia, G47.19 - Other hypersomnia RT PSG in-lab sleep study Today F51.04 - Psychophysiologic insomnia, G47.19 - Other hypersomnia TSH reflex Free T4 Today F41.1 - Generalized anxiety disorder, F51.04 - Psychophysiologic insomnia, G47.19 - Other hypersomnia Vitamin B12 and Folate Today F41.1 - Generalized anxiety disorder, F51.04 - Psychophysiologic insomnia, G47.19 - Other hypersomnia Vitamin D 25-OH Total Today F41.1 - Generalized anxiety disorder, F51.04 - Psychophysiologic insomnia, G47.19 - Other hypersomnia Ferritin Today F41.1 - Generalized anxiety disorder, F51.04 - Psychophysiologic insomnia, G47.19 - Other hypersomnia Comprehensive Met. Panel Today F41.1 - Generalized anxiety disorder, F51.04 - Psychophysiologic insomnia, G47.19 - Other hypersomnia Patient Instructions: Sleep Hygiene provided: set a scheduled bedtime and wake time to help regulate the circadian rhythm and balance the release of pituitary hormones. Sleep in a dark room, temperatures below 68 degrees, and no devices n bed. Limit caffeinated products 6 hours prior to bed, and limit fluids 2-4 hours prior to bed. Gentle night yoga, diffusing essential oils, and playing soft music can be relaxing. Diet and exercise will improve the sleep cycle, hydrate at least 60% of body weight. Focus on self care, massages for shoulders. Elevated shoulders, forward head posture, body mechanics improvement. Continue to take Melatonin 3mg to 6mg po daily 3 hours prior to bedtime. PSG and and labs complete and will follow up. Coding Level of Care Code New Pt Level 4 (26556) Diagnoses Excessive daytime sleepiness G47.19 Chronic insomnia F51.04 Generalized anxiety disorder F41.1 History of sleep walking Z86.59 Time Spent (min) 30 Comment Evaluation of Insomnia Sleep Questionnaire Difficulty falling asleep: Yes Difficulty staying asleep?: Yes Number of arousals: 4-5 Snoring: Yes Witnessed apneas: No Gasping arousals: No Nocturia: Yes (3) GERD: Yes Vivid dreams: Yes Acting out dreams: No Abnormal behavior in sleep: Yes (sleep walking and sleep talking) Abnormal movements in sleep: Yes (tosses and turns) Morning headaches: No Excessive daytime sleepiness: Yes Daytime naps: No Restless legs: No Hallucinations: No Sleep paralysis: No Drop attacks: No Sleep Study: Yes (>10 years ago) CPAP: No
== END 2025-04-19 09:01 | disposition home or self-care (01) ==
LOC: HO.HSMS 07:48
PROVIDERS: PCP Internal Medicine; Visit Provider Physician Assistant Medical
DX: G47.19 Other hypersomnia (principal); F51.04 Psychophysiologic insomnia; F41.1 Generalized anxiety disorder; Z86.59 Personal history of other mental and behavioral disorders
CPT/HCPCS: 99204

== ENCOUNTER 2025-04-23 08:35 | Outpatient (REF) | payer OTHER, SELFPAY ==
--- OUTSIDE RECORDS SUMMARY | 2025-04-23 08:47 | XMS_ITS | Patient Health Record ---
Author Organization [facility] Address [address] [place] [address] Support Name Relationship Address Phone MADISYN MCCLURE Guarantor Unknown [phone] Reason For Referral No Information Medications Medication [...] Notes Problem Surveillance of oral contraception done ([id number]) Surveillance of previously prescribed contraceptive pill (V25.41) Active confirmed Diag Plan Of Treatment No Information Insurance Providers Payer Name Payer Address Payer Phone Subscriber Number Group Number Insured Name Patient Relationship to Insured Coverage Start Date Coverage End Date [employer] [address] [place] [id number] MADISYN MCCLURE Self - patient is the insured
--- OUTSIDE RECORDS SUMMARY | 2025-04-23 08:47 | XMS_ITS | Patient Health Record ---
[facility] Address [address] [place] [address] Care Team Providers Care Logging Shovel Operator Name Role Phone Romulo DONALDSON, Dunia Oviedo Primary Care Provider Un available Nakia Gonzalez Unavailable [phone] Allergies Allergen (clinical drug ingredient) Drug/Non Drug Allergy documented on EMR Reaction Allergy Type Onset Date Status aripiprazole abilify (uncoded) couldn't sleep Allergy Active Reason [...] Treatment Pending Test Test Name Order Date [id number] Plate 05/18/2016 Insurance Providers Payer Name Payer Address Payer Phone Subscriber Number Group Number Insured Name Patient Relationship to Insured Coverage Start Date Coverage End Date [place] [address] [place] [phone] [id number] Joycelyn Munguia Self - patient is the insured Medical (General) History Medical History History ICD Code Anxiety disorder Depression Headaches Migraines Chicken pox
[2025-04-23 09:59] LABS: Hematocrit 38.2 % (37.0-47.0); Hemoglobin 12.5 g/dl (12.0-16.0); Mean Corpuscular HGB Conc 32.7 g/dl (31.0-35.0); Mean Corpuscular Hemoglobin 27.8 pg (27.0-33.0); Mean Corpuscular Volume 85.1 fL (80.0-98.0); NRBC Abs Auto 0.000 X10*3/uL (0.0-0.012); NRBC Pct Auto 0.0 /100WBC (0.0-0.2); Platelet Count 324 X10*3/uL (160-400); Red Blood Count 4.49 X10*6/uL (4.20-5.50); White Blood Count 10.6 X10*3/uL (4.8-10.8)
[2025-04-23 10:53] LABS: Alanine Aminotransferase 32 U/L (0-31); Albumin Level 4.0 g/dL (3.5-5.0); Alkaline Phosphatase 64 U/L (39-117); Anion Gap 14 (12-20); Aspartate Amino Transferase 52 U/L (5-31); Blood Urea Nitrogen 9 mg/dL (9-16); Calcium 9.3 mg/dL (8.4-10.2); Carbon Dioxide 25 mmol/L (22-29); Chloride 104 mmol/L (96-108); Estimated Glomerular Filt Rate > 60; Potassium 4.3 mmol/L (3.3-5.1); Sodium 139 mmol/L (135-145); Total Protein 7.8 g/dL (6.5-8.0)
[2025-04-23 11:17] LABS: Folate 12.8 ng/mL (> or = 4.0); Vitamin B12 510 pg/mL (200-900)
[2025-04-23 11:19] LABS: Ferritin 197 ng/mL (10-122)
[2025-04-23 12:26] LABS: Free T4 (Free Thyroxine) 0.87 ng/dL (0.71-1.85)
== END 2025-04-23 08:36 | disposition home or self-care (01) ==
LOC: HO.LAB 08:35
PROVIDERS: PCP Internal Medicine; Visit Provider Physician Assistant Medical
DX: G47.19 Other hypersomnia (principal); F51.04 Psychophysiologic insomnia; F41.1 Generalized anxiety disorder; R53.83 Other fatigue; G47.9 Sleep disorder, unspecified; Z13.1 Encounter for screening for diabetes mellitus
CPT/HCPCS: 36415; 80053; 82306; 82607; 82728; 82746; 83036; 83090; 83921; 84439; 84443; 85027

== ENCOUNTER 2025-05-02 12:26 | Outpatient (AMB) | payer OTHER, SELFPAY ==
[2025-05-02 12:32] VITALS: BP 102/80; PULSE 91; RESP 15; TEMP 37.1; O2SAT 98; BMI 44.6
--- NOTE | 2025-05-02 12:32 | A.OFFPC_ITS ---
Vital Signs 05/02/25 12:32 Height 5 ft 3 in Weight 252 lb BMI 44.6 BP 102/80 Blood Pressure Location Rt brachial Position Sitting Respiration 15 Pulse 91 Pulse Source Pulse Oximeter Temp 98.7 F Temp Source Oral Pulse Oximetry (%) 98 Oxygen Delivery Method Room Air Intake Visit Reasons: PE Intake Note: Pt is here today for her PE: Is last menstrual period known: Yes Last menstrual period: 04/09/25 Allergies kiwi Allergy (Unknown, Verified 05/02/25 12:51) Itching tree nut Allergy (Unknown, Verified 05/02/25 12:51) sore throat aripiprazole (From [employer]) Adverse Reaction (Verified 05/02/25 12:51) Insomnia Medication List - Last Reconciled 05/02/25 by Dunia Sebastian MD cholecalciferol (vitamin D3) 62.5 mcg PO DAILY 3 months MDD 62.5mcg clonazepam (Klonopin) 1 mg PO BEDTIME desvenlafaxine succinate ER 25 mg PO DAILY drospirenone-e.estradiol-lm.FA 3-0.02-0.451 mg (24) (4) 1 tab PO DAILY guanfacine 2 mg PO BEDTIME lemborexant (Dayvigo) 10 mg PO DAILY magnesium glycinate 200 mg PO BEDTIME multivitamin 1 tab PO DAILY psyllium husk (Metamucil) 0.4 grams PO DAILY Saccharomyces boulardii (Daily Probiotic (S. boulardii)) 250 mg PO BID sodium fluoride-pot nitrate 1.1-5 % PO Tobacco use date assessed: 05/02/25 Dental Screening Dental Screen Date: 05/02/25 Did you have a dental visit in the last 12 months?: Yes Did you have a dental problem in the last 6 months where you did not have access to dental care?: No Was dental information given to patient?: Patient has dentist [facility] Medical History (Updated 05/02/25 @ 13:34 by Dunia Sebastian MD) Pain of plantar aspect of heel Type 2 diabetes mellitus without complication, without long-term current use of insulin ADHD Chronic insomnia Sleeping difficulties Elevated fasting glucose Generalized anxiety disorder Chronic pelvic pain syndrome in female Menstrual periods irregular Tachycardia Impaired fasting glucose Obesity History of urinary urgency Surgical History No pertinent past surgical history Family History Father Depression Substance use disorder Mental health disorder Sister Depression Mental health disorder Maternal Grandmother Depression Mental health disorder Maternal Grandfather Diabetes mellitus Social History Housing: Apartment Alcohol intake: current Patient Tobacco Use Status: Never used Tobacco e-Cigarette/Vaping Use: Never Used service: No Current occupational status: employed Current occupation: [employer] Current occupational exposures/hazards: No Cognitive needs: No Hearing needs: No Vision needs: No Female Reproductive History Menstrual Date of last menstrual period: 04/09/25 Questionnaire PHQ-9 Over the last 2 weeks, how often have you been bothered by any of the following problems? 1. Little interest or pleasure in doing things: not at all 2. Feeling down, depressed, or hopeless: several days 3. Trouble falling or staying asleep, or sleeping too much: nearly every day 4. Feeling tired or having little energy: more than half the days 5. Poor appetite or overeating: several days 6. Feeling bad about yourself - or that you are a failure or have let yourself or your family down: several days 7. Trouble concentrating on things, such as reading the newspaper or watching television: not at all 8. Moving or speaking so slowly that other people could have noticed. Or the opposite - being so fidgety or restless that you have been moving around a lot more than usual: not at all 9. Thoughts that you would be better off or of hurting yourself in some way: not at all Total score: 8 Depression Screening Interpretation: Negative Depression Screening Done: Yes 55998 - PHQ-9 Billing: Yes Source: Developed by Drs. Jerzy Holguin, Tanisha Babin, Froylan Joshi and colleagues, with an educational tammi from [employer]. Thrive Questionnaire Date Thrive assessed: 02/09/25 I am a: Patient What is your living situation today?: I have a steady place to live Within the past 12 months, did the food you bought not last and you didn't have the money to get more?: Never true Within the past 12 months, did you worry whether your food would run out before you got money to buy more?: Never true Do you have trouble paying for medicines?: No Do you have trouble getting transportation to medical appointments?: No Do you have trouble paying your heating and electricity bill?: No Do you have trouble taking care of your child, family member or friend?: No Do you have trouble with day-to-day activities such as bathing, preparing meals, shopping, managing finances, etc.?: No Are you currently unemployed and looking for a job?: No Are you interested in more education?: No Please select the resources that you would like help with: None Currently or been in a relationship where the following occur: No concerns reported THRIVE Score: 0 AUDIT C Alcohol Use Questionnaire (AUDIT-C) 1. How often do you have a drink containing alcohol?: Never Total Score: 0 BARBRA-7 AMB Questionnaire BARBRA-7 Date BARBRA - 7 assessed: 02/09/25 Feeling nervous, anxious, or on edge: 1 = Several days Not being able to stop or control worryin = Several days Worrying too much about different things: 0 = Not at all Trouble relaxin = Not at all Being so restless that it is hard to sit still: 0 = Not at all Becoming easily annoyed or irritable: 2 = More than half the days Feeling afraid as if something awful might happen: 1 = Several days Total BARBRA-7 score (0-4 normal; 5-9 mild; 10-14 moderate; 15-21 severe): 5 Source: Developed by Drs. Jerzy Holguin, Tanisha Babin, Froylan Joshi and colleagues, with an educational tammi from [employer]. BARBRA-7 Assessment Billing BARBRA-7 Assessment Tool: BARBRA-7 Assessment 84839 Physical exam (Primary Care) Vital Signs: Last Vital Signs Temp 98.7 F 05/02/25 12:32 Pulse 91 05/02/25 12:32 Resp 15 05/02/25 12:32 BP 102/80 05/02/25 12:32 Pulse Ox 98 05/02/25 12:32 Oxygen Delivery Method Room Air 05/02/25 12:32 BMI result Body Mass Index 44.6 Tobacco/Smoking Status: Tobacco use Status Tobacco use date assessed 05/02/25 05/02/25 12:44 Patient Tobacco Use Status Never used Tobacco 05/02/25 12:34 e-Cigarette/Vaping Use Never Used 05/02/25 12:34 PHQ-9: PHQ-9 Score PHQ-9: Total score 8 05/02/25 13:00 Depression Screening Interpretation: Negative Thrive Assessment: Date of Thrive Assessment Date Thrive assessed 02/09/25 05/02/25 12:34 Currently or been in a relationship where the following occur: No concerns reported Immunizations pneumoc 20-willard conj-dip cr(PF) 0.5 mL IM syringe Performing Provider: Dunia Sebastian MD Performing Location: [facility] [facility] Administered by: Edwina Villatoro CMA on 05/02/25 13:36 Dose Route Admin Location Dispensed Lot Number Expiration Date [facility] [employer] 0.5 mL IM Right Deltoid 0.5 mL [id number] 04/12/26 9453-6685-68 [employer] Total Dispensed Waste 0.5 mL 0 % VIS Given Date VIS Provided VIS Publication Date 05/02/25 Single Vaccine 25 Eligibility Eligibility Date Funding Source Not [facility] Eligible 05/02/25 Private Results Reviewed Results Reviewed: Name: Joycelyn Munguia Age/Sex: 35/F : 1990 Unit#: [id number] Attend Dr: Shaheed Lai PA-C Re04/23/25 Status: DEP [facility]: SPEC : [id number] TIANA: 04/23/25 STATUS: COMP REQ : [id number] RECD: 04/23/[address]: Shaheed Lai PA-C COMP: 04/23/25-1119 ENTERED: 04/23/25-[address]: Dunia Sebastian MD ORDERED: CMP, Ferritin, Vitamin D 25-OH, Free T4, TSH Rflx Test Result Flag Reference Sodium 139 135-145 mmol/L Potassium 4.3 3.3-5.1 mmol/L CL 104 96-108 mmol/L CO2 25 22-29 mmol/L Gap 14 12-20 BUN 9 9-16 mg/dL Creat 0.62 0.5-1.4 mg/dL eGFR > 60 Chronic Kidney Disease: Estimated GFR < 60 mL/min/1.73m2 Severe Kidney Disease: Estimated GFR < 15 mL/min/1.73m2 Glucose, Random 208 H 60-115 mg/dL CA 9.3 8.4-10.2 mg/dL Ferritin 197 H 10-122 ng/mL Total Bili 0.2 0.0-1.0 mg/dL AST (GOT) 52 H 5-31 U/L ALT (GPT) 32 H 0-31 U/L Protein, Total 7.8 6.5-8.0 g/dL Alb 4.0 3.5-5.0 g/dL Alk Phos 64 39-117 U/L Vitamin D 25-OH 31.3 >30 ng/mL Health Based Reference Values* < 20 ng/mL Deficient 20-30 ng/mL Insufficient > 30 ng/mL Sufficient *Arpan FARRIS. N Engl J Med. 2007;357:266-280 There is no well-established upper level of normal vitamin D levels. Some laboratories use 50 ng/mL as an upper limit of normal. However, toxicity is patient-dependent and may occur at any level. Careful correlation with the patient's presentation is necessary and, if there is concern for vitamin D toxicity, treatment should be considered irrespective of the serum level. Care must be taken in interpreting Vitamin D results from different laboratories and methodologies. Published data demonstrated that results from patients undergoing hemodialysis may show a negative bias when tested with various automated 25-OH vitamin D assays when compared to LC-MS/MS. When testing samples from patients whose predominant form of Vitamin D is Vitamin D2, such as patients receiving Vitamin D2 supplementation, results that are subtherapeutic should be confirmed with another method such as LC-MS/MS. Free T4 0.87 0.71-1.85 ng/dL TSH 4.82 H 0.32-4.0 uIU/mL Laboratory Tests 04/23/25 09:22 Estimat Average Glucose 189 Hemoglobin A1c % 8.2 H Coding Level of Care Code Est Pt Prev Care 18-39y(40207) Diagnoses Annual visit for general adult medical examination with abnormal findings Z00.01 Class 2 obesity due to excess calories without serious comorbidity with body mass index (BMI) of 36.0 to 36.9 in adult E66.09; Z68.36 Body mass index: BMI 36.0-36.9 Obesity classification: adult class 2 (BMI 35 - 39.9) Obesity type: due to excess calories Serious obesity comorbidity presence: without serious comorbidity Generalized anxiety disorder F41.1 Chronic insomnia F51.04 Type 2 diabetes mellitus without complication, without long-term current use of insulin E11.9 Pain of plantar aspect of heel M79.673 Attention deficit hyperactivity disorder (ADHD), combined type F90.2 Attention deficit-hyperactivity disorder type: combined inattentive- hyperactive Additional Codes BARBRA-7 Assessment Billing - BARBRA-7 Assessment Tool: BARBRA-7 Assessment 16119 ([id number]) PHQ-9 - 86001 - PHQ-9 Billing: Yes ([id number]) Assessment & Plan Assessment & Plan (1) Annual visit for general adult medical examination with abnormal findings: Code(s): Z00.01 - Encounter for general adult medical examination with abnormal findings Plan: Reviewed recent fasting lab results with patient. Continue with regular dental prophylaxis every 4 months. And advised to see an medical art therapist once a year for diabetes retinopathy screening. And eye exam Take adequate calcium in diet and vitamin-D 3 at 2000 IU per cap once a day, in addition to weight- bearing exercises to help maintain good muscle tone and weight control. Instructed to do self-breast exam, start yearly mammogram at age 42. Up-to-date with her cervical cancer screening, copy of results requested up-to-date with all her vaccines, Prevnar 20 given today, reminded to get yearly flu shot (2) Obesity: Code(s): E66.9 - Obesity, unspecified Category: Medical Qualifiers: Body mass index: BMI 36.0-36.9 Obesity classification: adult class 2 (BMI 35 - 39.9) Obesity type: due to excess calories Serious obesity comorbidity presence: without serious comorbidity Qualified Code(s): E66.09 - Other obesity due to excess calories; Z68.36 - Body mass index [BMI] 36.0-36.9, adult Plan: Y Discussed need to increase activity and weight reduction. Recommended focusing on improving health instead of dieting. Mediterranean diet is a healthy diet that helps, limit food high in fat, sugar, and calories. Eat slowly, pay attention to portion sizes, plan your meals ahead of time, start regular physical activity, at least 150 minutes of moderate intensity exercise, or 90 minutes per week of vigorous exercise. Referred to director of learning for dietary guidance (3) Generalized anxiety disorder: Code(s): F41.1 - Generalized anxiety disorder Category: Medical Plan: Followed at [facility] and counseling currently on Pristiq 25 mg daily (4) Chronic insomnia: Comment: has appt for sleep study next week at [facility] [place] sleep clinic Code(s): F51.04 - Psychophysiologic insomnia Category: Medical Plan: Followed at [facility] and counseling, currently on Lemborexant and clonazepam prescribed by her psychiatrist. Scheduled for a sleep study next week at [facility] [place] sleep clinic (5) Type 2 diabetes mellitus without complication, without long-term current use of insulin: Code(s): E11.9 - Type 2 diabetes mellitus without complications Category: Medical Plan: Started on metformin ER 500 mg take once a day with supper time,, reinforced importance of following recommended diet, referred for diabetes education and guidance get yearly flu shot, Prevnar 20 given today. Advise patient to get an appointment with an medical art therapist for her yearly diabetes retinopathy screening, referred to [facility] for her diabetes foot exam. Will see her back for follow-up in 3 her fasting labs (6) Pain of plantar aspect of heel: Code(s): M79.673 - Pain in unspecified foot Category: Medical Plan: [facility] consult ordered for diabetes foot exam and evaluation for possible plantar fascitis (7) ADHD: Code(s): F90.9 - Attention-deficit hyperactivity disorder, unspecified type Category: Medical Qualifiers: Attention deficit-hyperactivity disorder type: combined inattentive- hyperactive Qualified Code(s): F90.2 - Attention-deficit hyperactivity disorder, combined type Plan: Currently on guanfacine, followed at [facility] in counseling by Mikaela mota Orders: Orders Lipid Panel 07/18/25 E11.9 - Type 2 diabetes mellitus without complications, E66.09 - Other obesity due to excess calories, F41.1 - Generalized anxiety disorder, F51.04 - Psychophysiologic insomnia, R79.89 - Other specified abnormal findings of blood chemistry, Z68.36 - Body mass index [BMI] 36.0-36.9, adult Comprehensive [place]. Panel Fast 07/18/25 E11.9 - Type 2 diabetes mellitus without complications, E66.09 - Other obesity due to excess calories, F41.1 - Generalized anxiety disorder, F51.04 - Psychophysiologic insomnia, R79.89 - Other specified abnormal findings of blood chemistry, Z68.36 - Body mass index [BMI] 36.0-36.9, adult Hemoglobin A1c 07/18/25 E11.9 - Type 2 diabetes mellitus without complications, E66.09 - Other obesity due to excess calories, F51.04 - Psychophysiologic insomnia, R79.89 - Other specified abnormal findings of blood chemistry, Z68.36 - Body mass index [BMI] 36.0-36.9, adult Vitamin D 25-OH Total 07/18/25 E11.9 - Type 2 diabetes mellitus without complications, E66.09 - Other obesity due to excess calories, F51.04 - Psyc hophysiologic insomnia, R79.89 - Other specified abnormal findings of blood chemistry, Z68.36 - Body mass index [BMI] 36.0-36.9, adult Microalbumin, Random (w Creat) 07/18/25 E11.9 - Type 2 diabetes mellitus without complications, E66.09 - Other obesity due to excess calories, F41.1 - Generalized anxiety disorder, F51.04 - Psychophysiologic insomnia, R79.89 - Other specified abnormal findings of blood chemistry, Z68.36 - Body mass index [BMI] 36.0-36.9, adult Pneumococcal 20 Immunization Today Z23 - Encounter for immunization Referrals Podiatry Referral E11.9 - Type 2 diabetes mellitus without complications, M79.673 - Pain in unspecified foot Medications: New metformin ER (Glucophage XR) 500 mg PO QPM 90 tabs 1RF E11.9 - Type 2 diabetes mellitus without complications
--- OUTSIDE RECORDS SUMMARY | 2025-05-02 13:23 | XMS_ITS | Patient Health Record ---
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 Name Role Phone Romulo DONALDSON, Dunia Oviedo Primary Care Provider Un available Nakia Gonzalez Unavailable [phone] Allergies Allergen (clinical drug ingredient) Drug/Non Drug [...] Treatment Pending Test Test Name Order Date [id number]-Bxnunzbu Plate 05/18/2016 Insurance Providers Payer Name Payer Address Payer Phone Subscriber Number Group Number Insured Name Patient Relationship to Insured Coverage Start Date Coverage End Date [place] [address] [place] [phone] [id number] Joycelyn Munguia Self - patient is the insured Medical (General) History Medical History History ICD Code Anxiety disorder Depression Headaches Migraines Chicken pox
--- OUTSIDE RECORDS SUMMARY | 2025-05-02 13:23 | XMS_ITS | Patient Health Record ---
Author Organization [facility] Address [address] [place] [address] Support Name Relationship Address Phone MADISYN MCCLURE Guarantor Unknown [phone] Reason For Referral No Information Medications Medication [...] Notes Problem Surveillance of oral contraception done ([id number]) Surveillance of previously prescribed contraceptive pill (V25.41) Active confirmed Diag Plan Of Treatment No Information Insurance Providers Payer Name Payer Address Payer Phone Subscriber Number Group Number Insured Name Patient Relationship to Insured Coverage Start Date Coverage End Date [employer] [address] [place] [id number] MADISYN MCCLURE Self - patient is the insured
== END 2025-05-02 13:59 | disposition home or self-care (01) ==
LOC: HO.HMCC 12:26
PROVIDERS: PCP Internal Medicine; Visit Provider Internal Medicine
DX: Z23 Encounter for immunization (principal)

== ENCOUNTER → 2025-05-02 12:26 | Outpatient (BNVA) | payer OTHER, SELFPAY | PROVIDERS: PCP Internal Medicine; Visit Provider Internal Medicine | DX: Z00.01 Encounter for general adult medical examination with abnormal findings (principal); F41.1 Generalized anxiety disorder; F51.04 Psychophysiologic insomnia; E11.9 Type 2 diabetes mellitus without complications; F90.9 Attention-deficit hyperactivity disorder, unspecified type; E66.09 Other obesity due to excess calories; M79.673 Pain in unspecified foot; Z68.36 Body mass index [BMI] 36.0-36.9, adult; F90.2 Attention-deficit hyperactivity disorder, combined type; Z23 Encounter for immunization | CPT/HCPCS: 90471; 90677; 96127 ==

== ENCOUNTER 2025-05-02 15:03 | Outpatient (AMB) | payer OTHER, SELFPAY ==
--- NOTE | 2025-05-02 15:05 | A.OFFVIS_ITS ---
Intake Visit Reasons: Labs follow up Intake Note: Patient presents lab results Allergies kiwi Allergy (Unknown, Verified 05/02/25 15:07) Itching tree nut Allergy (Unknown, Verified 05/02/25 15:07) sore throat aripiprazole (From [employer]) Adverse Reaction (Verified 05/02/25 15:07) Insomnia HPI Comments Details: 35 year old female f/u for sleep difficulties via telehealth visit today. Patient is scheduled for a PSG on April,. 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 We reviewed labs today her ferritin is elevated to 197, A1c is 8.2 and she is started on metformin, will add on a GLP-1 in 3 mos, per pcp. She is seeing her psychiatrist 2x a month. [facility] notification may not approve her Dayvigo after the month of April 2025. Her psychiatrist recommends Belsomra, if Dayvigo is not approved. She also has BARBRA and is on pristiq which helps with her anxiety. [facility] Medical History Pain of plantar aspect of heel Type 2 diabetes mellitus without complication, without long-term current use of insulin ADHD Chronic insomnia Sleeping difficulties Elevated fasting glucose Generalized anxiety disorder Chronic pelvic pain syndrome in female Menstrual periods irregular Tachycardia Impaired fasting glucose Obesity History of urinary urgency Surgical History No pertinent past surgical history Family History Father Depression Substance use disorder Mental health disorder Sister Depression Mental health disorder Maternal Grandmother Depression Mental health disorder Maternal Grandfather Diabetes mellitus Social History Housing: Apartment Alcohol intake: current Patient Tobacco Use Status: Never used Tobacco e-Cigarette/Vaping Use: Never Used service: No Current occupational status: employed 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 Current occupational exposures/hazards: No Cognitive needs: No Hearing needs: No Vision needs: No Telehealth Telehealth Telehealth Platform: [employer] Location of provider rendering services: practice address Location of patient: address on file Patient Identification confirmed using: Name, : Yes Telehealth method: video Patient verbally consented to treatment: Yes Patient verbally consented to billing insurance company: Yes Patient informed of any privacy concerns related to visit: Yes Minutes spent on Phone/Video with Pt.: 20 Assessment & Plan Assessment & Plan (1) Generalized anxiety disorder: Code(s): F41.1 - Generalized anxiety disorder Category: Medical (2) Sleeping difficulties: Comment: Difficulty initiating and maintaining sleep, wakes up every 3 hours, has a hard time going back to sleep Code(s): G47.9 - Sleep disorder, unspecified Category: Medical (3) Chronic insomnia: Comment: has appt for sleep study next week at [facility] [place] Code(s): F51.04 - Psychophysiologic insomnia Category: Medical Plan PSG is pending April 2025 Continue Dayvigo 10mg po 5x a week and Klonipin 2mg po CBT with sleep specialist on [email or web address] and download the donna CBT-I Cell Lead for sleep improvement. Anxiety Desvenlafaxine 25mg po dialy, continue to see your therapist, start going to the gym 3x a week, drink water and practice good self care strategies. Sleep hygiene reviewed setting a strict schedule for sleep and wake, avoid screen time prior to bed. Labs reviewed with patient A1c is 8.2 started metformin per pcp Patient Instructions: Lemborexant patient information. UP TO DATE: Use this drug as ordered by your doctor. Read all information given to you. Follow all instructions closely.??Take this drug right before you get into bed.??Take with or without food. If taken with or right after a meal, this drug may take longer to work.??If you still have trouble sleeping after 7 to 10 days, call your doctor.??Do not take this drug unless you can get a full night's sleep (at least 7 to 8 hours) before you need to be active again. Sleep Hygiene provided: set a scheduled bedtime and wake time to help regulate the circadian rhythm and balance the release of pituitary hormones. Sleep in a dark room, temperatures below 68 degrees, and no devices n bed. Limit caffeinated products 6 hours prior to bed, and limit fluids 2-4 hours prior to bed. Gentle night yoga, diffusing essential oils, and playing soft music can be relaxing. Coding Level of Care Code Tele Est Pt Level 4 (40028) Diagnoses Generalized anxiety disorder F41.1 Sleeping difficulties G47.9 Chronic insomnia F51.04 Time Spent (min) 20 Comment f/u sleep difficulties
== END 2025-05-02 15:41 | disposition home or self-care (01) ==
LOC: HO.HSMS 15:04
PROVIDERS: PCP Internal Medicine; Visit Provider Physician Assistant Medical
DX: F41.1 Generalized anxiety disorder (principal); G47.9 Sleep disorder, unspecified; F51.04 Psychophysiologic insomnia
CPT/HCPCS: 98005

== ENCOUNTER → 2025-05-09 20:30 | Outpatient (REF) | payer OTHER, SELFPAY ==
--- OUTSIDE RECORDS SUMMARY | 2025-05-09 20:47 | XMS_ITS | Patient Health Record ---
Author Organization [facility] Address [address] [place] [address] Care Team Providers Care Licensed Life And Health Agent Name Role Phone Romulo DONALDSON, Dunia Oviedo Primary Care Provider Un available Nakia Gonzalez Unavailable [phone] Allergies Allergen (clinical drug ingredient) Drug/Non Drug [...] Treatment Pending Test Test Name Order Date [id number] Plate 05/18/2016 Insurance Providers Payer Name Payer Address Payer Phone Subscriber Number Group Number Insured Name Patient Relationship to Insured Coverage Start Date Coverage End Date [place] [address] [place] [phone] [id number] Joycelyn Munguia Self - patient is the insured Medical (General) History Medical History History ICD Code Anxiety disorder Depression Headaches Migraines Chicken pox
--- OUTSIDE RECORDS SUMMARY | 2025-05-09 20:48 | XMS_ITS | Clinical Summary ---
Author Organization [facility] Address [address] [place] [address] Phone Care Team Providers Care Stenotypist Name Role Phone Dunia Sebastian MD Primary Care Provider Allergies No known active allergies Medications ARIPiprazole (ABILIFY) 2 MG tablet 04/29/2022 Active clomiPRAMINE (ANAFRANIL) 50 MG capsule TAKE 1 CAPSULE BY MOUTH TWICE A DAY DIRECTED 04/28/2022 Active drospirenone-e. estradioL-lm.FA 3-0.02-0.451 mg (24) (4) Tab Take 1 tablet by mouth daily. 04/08/2022 Active Social History Tobacco Use Types Packs/Day Years Used Date Smoking Tobacco: Never Smokeless Tobacco: Never Alcohol Use Standard Drinks/Week Comments Never 0 (1 standard drink = 0.6 oz pur e alcohol) Education Answer Date Recorded Are you interested in more education? Not on baltazar e 02/13/2023 Are you concerned about learning? Not on file 02/13/2023 No 02/13/2023 No 02/13/2023 Digital Access Answer Date Recorded No 03/14/2023 No 03/14/2023 No 03/14/2023 Reliable internet access at home? Not on file 03/14/2023 Device with a working camera? Not on file Comments Unknown Sex and Gender Information Value Date Recorded Sex Assigned at Not on file Legal Sex Female 9:03 AM EDT Gender Identity Not on file Sexual Orientation Not on file Last Filed Vital Signs Vital Sign Reading Time Taken Comments Blood Pressure 132/76 05/07/2022 10:22 AM EDT Pulse 138 05/07/2022 10:22 AM EDT Temperature 37.2 C (98.9 F) 05/07/2022 10:22 AM EDT Respiratory Rate 16 05/07/2022 10:22 AM EDT Oxygen Saturation 98% 05/07/2022 10:22 AM EDT Inhaled Oxygen Concentration - - Weight 99.8 kg (220 lb) 05/07/2022 10:22 AM EDT Height 160 cm (5' 3 ) 05/07/2022 10:22 AM EDT Body Mass Index 38.97 05/07/2022 10:22 AM EDT Plan of Treatment Health Maintenance Due Date Last Done Comments DEPRESSION SCREENING 2004 HEPATITIS C SCREENING 2010 HIV ONE-TIME SCREENING (18-6 5 YEARS) 2010 PAP SMEAR 2013 COVID-19 VACCINE (3 - 2023-2 5 season) 2024 09/25/2021, 01/25/2021 Adult Td,Tdap Booster 10/01/2028 10/01/2018 SMOKING STATUS SCREENING (On ce After 26 Yrs) Completed 05/07/2022 HEPATITIS A VACCINES Aged Out No long er eligible based on patient's age to complete this topic HIB VACCINES Aged Out No longer eligi ble based on patient's age to complete this topic MENINGOCOCCAL VACCINES (ACWY) Aged Out No longer eligible based on patient's age to complete this topic MENINGOCOCCAL VACCINES (B) Aged Out N o longer eligible based on patient's age to complete this topic PNEUMOCOCCAL VACCINES (0-49 years) Aged Out No longer eligible b ased on patient's age to complete this topic Medical Devices Not on file [place] [address] [address]ER [address] [place] JAMES [id number] [facility] POS [address] [place] [id number] [facility] [address] [place]AMES [id number] [facility] POS [address] [place] JAMES [id number] [facility] POS [address] [place] JAMES [id number] [facility] POS [address] [place] JAMES [id number] [facility] POS [employer] EXPL[employer]ER POS [facility] POS Care Teams Stenotypist Relationship Specialty Start Date End Date Dunia Sebastian MD [facility] [place] [address] PCP - General Internal Medicine 05/07/22 Additional Source Comments The information contained in this document represents components of the legal health record. It is not the complete legal health record.[facility]
--- OUTSIDE RECORDS SUMMARY | 2025-05-09 20:48 | XMS_ITS | Patient Health Record ---
Author Organization [facility] Address [address] [place] [address] Support Name Relationship Address Phone MADISYN MCCLURE Guarantor Unknown [phone] Reason For Referral No Information Medications Medication [...] Notes Problem Surveillance of oral contraception done ([id number]) Surveillance of previously prescribed contraceptive pill (V25.41) Active confirmed Diag Plan Of Treatment No Information Insurance Providers Payer Name Payer Address Payer Phone Subscriber Number Group Number Insured Name Patient Relationship to Insured Coverage Start Date Coverage End Date [employer] [place] [employer] [address] [place] [id number] [phone] [id number] MADISYN MCCLURE Self - patient is the insured
== END ==
LOC: HO.SL 20:30
PROVIDERS: PCP Internal Medicine; Visit Provider Physician Assistant Medical
DX: F51.04 Psychophysiologic insomnia (principal); G47.19 Other hypersomnia
CPT/HCPCS: 95810

== ENCOUNTER → 2025-05-09 22:37 | Outpatient (BNV) | payer OTHER, SELFPAY | PROVIDERS: PCP Internal Medicine; Visit Provider Psychiatry & Neurology Neurology | DX: G47.19 Other hypersomnia (principal); F51.04 Psychophysiologic insomnia | CPT/HCPCS: 95810 ==

== ENCOUNTER 2025-07-04 09:24 | Outpatient (AMB) | payer OTHER, SELFPAY ==
--- NOTE | 2025-07-04 09:32 | A.OFFVIS_ITS ---
Vital Signs 07/04/25 09:37 Height 5 ft 3 in Weight 249 lb 2 oz BMI 44.1 BP 118/72 Blood Pressure Location Lt brachial Position Sitting Pulse 120 H Pulse Source Pulse Oximeter Pulse Oximetry (%) 99 Oxygen Delivery Method Room Air Intake Visit Reasons: Follow up Intake Note: Patient presents follow up Sleep. PSG in chart(Less than 3hrs sleep recorded--AHI-<1, SUGAR-92%) Accompanied by: Self / Same As Patient Allergies kiwi Allergy (Unknown, Verified 05/02/25 15:07) Itching tree nut Allergy (Unknown, Verified 05/02/25 15:07) sore throat aripiprazole (From Abilify) Adverse Reaction (Verified 05/02/25 15:07) Insomnia HPI Comments Details: 35 year old female with sleep difficulties presents for a f/u and review of in lab PSG. April 2025 PSG conducted, and reviewed with pt. Study is limited due to <3 hours of sleep, AHI was <1 and O2 desaturation to 92%. This study does not meet the criteria for TOMY or central sleep apnea. She had light snoring. HR avg 84.5 bpm, with highest HR 146 bpm. Total arousals 21, and 7.9/hr, 0 resp, 7 leg mvmts, 14 spontaneous, 0 snore. PLMS 23 PLMS w/a PLM index of 8.6/hr. 7 PLMS arousals w/a PLMS index of 2.6/hr. She was taking Dayvigo and Klonipin during this PSG along with Guanfacin- non- stimulating med. We discussed assessment for Narcolepsy and Cataplexy or is this related to orexin receptors being blocked, due to medication response. 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 She has difficulty adjusting to time changes at work which interfere with her sleep, discussed staying on one dedicated schedule at work if possible. She no longer takes Davyvigo and Konipin. Concerta was a recent addition to her meds per psych and now she has 2 hours of sleep consistently. Prior to Concerta she was averaging 4 hours of sleep. Her goal is to be medication free in the future and maintain a normal sleep / wake pattern. We reviewed labs today ferritin level is elevated to 197, A1c is 8.2 and she was started on metformin, pcp will add on a GLP-1, as this will also help with weigh t loss BMI is 44 today. She has pain with ambulating, and paresthesias plantar surface of the feet. TSH is elevated and LFTs are elevated will f/u with pcp. She has anxiety within medical settings and panic attacks she takes pristiq and this helps with her anxiety. She is seeing her therapist 2x per month. We discussed timing of pristiq as it can cause hypersomnia in some while causing others to experience insomnia. perhaps she can try taking it at night time versus day time dosing. [facility] Medical History Pain of plantar aspect of heel Type 2 diabetes mellitus without complication, without long-term current use of insulin ADHD Chronic insomnia Sleeping difficulties Elevated fasting glucose Generalized anxiety disorder Chronic pelvic pain syndrome in female Menstrual periods irregular Tachycardia Impaired fasting glucose Obesity History of urinary urgency Surgical History No pertinent past surgical history Family History Father Depression Substance use disorder Mental health disorder Sister Depression Mental health disorder Maternal Grandmother Depression Mental health disorder Maternal Grandfather Diabetes mellitus Social History Housing: Apartment Alcohol intake: current Patient Tobacco Use Status: Never used Tobacco e-Cigarette/Vaping Use: Never Used service: No Current occupational status: employed Current occupation: [employer] Current occupational exposures/hazards: No Cognitive needs: No Hearing needs: No Vision needs: No Physical Exam Vital Signs: Last Vital Signs Pulse 120 H 07/04/25 09:37 BP 118/72 07/04/25 09:37 Pulse Ox 99 07/04/25 09:37 Oxygen Delivery Method Room Air 07/04/25 09:37 BMI result Body Mass Index 44.1 Obese, 257lbs, BMI is 45.6 and 5'3 Const General: cooperative and no acute distress Nutritional Appearance: obese Orientation/consciousness: patient oriented x3 HEENT Face and sinus: Yes face symmetric Teeth and gingiva: other ([place]i score of 4) Eyes Pupils: Equal, round and reactive pupils present Neck Other: shoulders are tight rigid. Resp Effort & Inspection: normal respiratory effort and able to speak in complete sentences Neuro General: patient oriented x3 and moves all extremities Cranial nerves: Yes Equal, round and reactive pupils present, Yes Normal accommodation reflex present, Yes Midline tongue present, Yes Ability to bilaterally rotate head present and Yes Ability to bilaterally elevate shoulders present Cognition (Neuro): normal cognition Gait exam (Neuro): Normal gait present Motor exam (neuro): 5/5 motor strength present throughout and Normal motor muscle tone present throughout Psych Appearance: grossly normal Speech and movement: Normal speech and movement present Thought process: Normal thought process present Thought content: Normal thought content present Results Reviewed Results Reviewed: April 2025 PSG conducted, and reviewed with pt. Study is limited due to <3 hours of sleep, AHI was <1 and O2 desaturation to 92%. This study does not meet the criteria for TOMY or central sleep apnea. She had light snoring. HR avg 84.5 bpm, with highest HR 146 bpm. Total arousals 21, and 7.9/hr, 0 resp, 7 leg mvmts, 14 spontaneous, 0 snore. PLMS 23 PLMS w/a PLM index of 8.6/hr. 7 PLMS arousals w/a PLMS index of 2.6/hr. She was taking Dayvigo and Klonipin during this PSG along with Guanfacin- non- stimulating med. Labs reviewed with pt today. Assessment & Plan Assessment & Plan (1) Sleeping difficulties: Comment: Difficulty initiating and maintaining sleep, wakes up every 3 hours, has a hard time going back to sleep Code(s): G47.9 - Sleep disorder, unspecified Category: Medical (2) Chronic insomnia: Comment: has appt for sleep study next week at [facility] sleep clinic Code(s): F51.04 - Psychophysiologic insomnia Category: Medical (3) Insomnia disorder, with other sleep disorder, recurrent: Comment: Bellsomra, Guanfacin Code(s): G47.00 - Insomnia, unspecified; G47.8 - Other sleep disorders Category: Medical (4) Hypersomnia: Code(s): G47.10 - Hypersomnia, unspecified Category: Medical Plan PSG reviewed with pt. and ruled out tomy, will f/u with MSLT to r/o hypersomnia and or Narcolepsy/Cataplexy. ADHD started concerta at 8am, with anxiety Guanfacin 10pm and Bellsomra at 10pm BARBRA/ and depression with panic in medical settings, continue to see your therapist, start going to the gym 3x a week, drink water and practice good self care strategies along with sleep hygiene. Reviewed setting a strict schedule for sleep and wake, avoid screen time prior to bed. Diffusing essential oils and taking medications at appropriate times. Labs reviewed with patient A1c is 8.2 started metformin per pcp and awaiting GLP-1. TSH is elevated, and HR is elevated today. Discontinued Dayvigo, and Klonipin per [facility], as it was not effective. Vitamin D is low, continue to take Vitamin D 2500mg po daily. B12 is normal, however due to T2DM and foot pain, can continue B12 1000mcg po daily. Orders: Orders AMB 14 Panel Urine Drug Screen Today F51.04 - Psychophysiologic insomnia, G47.10 - Hypersomnia, unspecified, Z51.81 - Encounter for therapeutic drug level monitoring RT sleep testing - MSLT Today F41.1 - Generalized anxiety disorder, F51.04 - Psychophysiologic insomnia, G47.10 - Hypersomnia, unspecified RT PSG in-lab sleep study Today F41.1 - Generalized anxiety disorder, F51.04 - Psychophysiologic insomnia, G47.10 - Hypersomnia, unspecified Medications: New mecobalamin (vitamin B12) place tablet under tongue and allow to dissolve for at least30 secs before swallowing 1,000 mcg sublingual BEDTIME 90 tabs 0RF low b12 3 months MDD 1000mcg Refilled cholecalciferol (vitamin D3) take one capsule daily at bedtime. 62.5 mcg PO DAILY 90 caps 0RF low vitamin d levels 3 months MDD 62.5mcg R79.89 - Other specified abnormal findings of blood chemistry Patient Instructions: Medication times review: Prystiq concerta 8am both. We discussed possibly adjusting pristiq to the night time as it can have sedating effects. Bellsomra for sleep at 10pm and guanfacin for ADHD- non stimulating. B12 1000mcg sublingually at night and Vit D, daily lunch time. MSLT / r/o narcolepsy / cataplexy. Day of PSG/MSLT complete a Urine tox screen. Labs reviewed with pt. from pcp A1c is elevated, TSH elevated. Can follow up in 4 months once adjusted to her night time work routine. Coding Level of Care Code Est Pt Level 4 (95860) Diagnoses Sleeping difficulties G47.9 Chronic insomnia F51.04 Insomnia disorder, with other sleep disorder, recurrent G47.00; G47.8 Hypersomnia G47.10
[2025-07-04 09:37] VITALS: BP 118/72; PULSE 120; O2SAT 99; BMI 44.1
--- OUTSIDE RECORDS SUMMARY | 2025-07-04 11:05 | XMS_ITS | Patient Health Record ---
[facility] Address [address] [place] [address] Care Team Providers Care Backup Sawyer Name Role Phone Romulo DONALDSON, Dunia Oviedo Primary Care Provider Un available Nakia Gonzalez Unavailable [phone] Allergies Allergen (clinical drug ingredient) Drug/Non Drug Allergy documented on EMR Reaction Allergy Type Onset Date Status aripiprazole Abilify can't sleep Drug Allergy Ac tive Reason For Referral No Information Medications Medication SIG (Take, Route, Frequency, Duration) Notes Start Date End Date Status LORazepam 1 MG 1 tablet at bedtime as needed Orally Once a day Active Escitalopram Oxalate 20 MG 0.5 tablet Or ally Once a day Active Beyaz Active Social History Tobacco Use: Social History Observation Description Date Details (start date - stop date) Never Smoker NA - NA Tobacco use other than smoking: Question Answer Notes Are you an other tobacco user? No Tobacco Control (Standard) Question Answer Notes Tobacco use: Nonsmoker Additional Findings: Tobacco non-user Current no nsmoker Problems No Known Problems Plan Of Treatment Pending Test Test Name Order Date [id number] Plate 05/18/2016 Next Appt Details Provider Name:Arlene Evans , 08/06/2025 10:30:00 AM, [address] [facility], [place], [address], Insurance Providers Payer Name Payer Address Payer Phone Subscriber Number Group Number Insured Name Patient Relationship to Insured Coverage Start Date Coverage End Date [facility] [address] [place] [phone] [id number] Joycelyn Munguia Self - patient is the insured Medical (General) History Medical History History ICD Code Anxiety disorder Depression Headaches Migraines Chicken pox covid-19 Diabetic Psychiatric disorder
--- OUTSIDE RECORDS SUMMARY | 2025-07-04 11:06 | XMS_ITS | Clinical Summary ---
Author Organization [facility] Address [address] [place] [address] Phone Care Team Providers Care Director Orange Name Role Phone Dunia Sebastian MD Primary [...] (18-6 5 YEARS) 2010 PAP SMEAR 2013 INFLUENZA VACCINE (#1) 2025 , 06/22/2020, 06/28/2018 COVID-19 VACCINE (3 - 2024-2 6 season) 2025 09/25/2021, 01/25/2021 Adult Td,Tdap Booster 10/01/2028 10/01/2018 [...] topic Medical Devices Not on file Insurance [facility] EXPLORER [address] [place] [id number] [facility] [address] [place] [id number] [facility] [employer] [address] [place] [id number] [facility] [employer] [address] [place] [id number] [facility] [employer] [address] [place] [id number] [facility] [employer] [address] [place] [id number] [facility] EX[employer] [address] [place] JAMES [id number] [facility] EXPLORER POS [address] [place] JAEMS [id number] [employer] EXPLORER POS Care Teams Director Orange Relationship Specialty Start Date End Date Dunia Sebastian MD [address] [place] [address] PCP - General Internal Medicine 05/07/22 Additional Source Comments The information contained in this document represents components of the legal health record. It is not the complete legal health record.[facility]
--- OUTSIDE RECORDS SUMMARY | 2025-07-04 11:06 | XMS_ITS | Patient Health Record ---
Author Organization [facility] Address [address] [place] [address] Support Name Relationship Address Phone MADISYN MCCLURE Guarantor Unknown [phone] Reason For Referral No Information Medications Medication [...] Notes Problem Surveillance of oral contraception done ([id number]) Surveillance of previously prescribed contraceptive pill (V25.41) Active confirmed Diag Plan Of Treatment No Information Insurance Providers Payer Name Payer Address Payer Phone Subscriber Number Group Number Insured Name Patient Relationship to Insured Coverage Start Date Coverage End Date [employer] [address] [place] [id number] MADISYN MCCLURE Self - patient is the insured
== END 2025-07-04 10:38 | disposition home or self-care (01) ==
LOC: HO.HSMC 09:25
PROVIDERS: PCP Internal Medicine; Visit Provider Physician Assistant Medical
DX: G47.9 Sleep disorder, unspecified (principal); F51.04 Psychophysiologic insomnia; G47.00 Insomnia, unspecified; G47.8 Other sleep disorders; G47.10 Hypersomnia, unspecified
CPT/HCPCS: 99214

== ENCOUNTER 2025-07-25 09:11 | Outpatient (REF) | payer OTHER, SELFPAY ==
[2025-07-25 14:23] LABS: Alanine Aminotransferase 31 U/L (0-31); Albumin Level 4.1 g/dL (3.5-5.0); Alkaline Phosphatase 60 U/L (39-117); Anion Gap 11 (12-20); Aspartate Amino Transferase 45 U/L (5-31); Blood Urea Nitrogen 8 mg/dL (9-16); Calcium 9.4 mg/dL (8.4-10.2); Carbon Dioxide 25 mmol/L (22-29); Chloride 105 mmol/L (96-108); Cholesterol 177 mg/dL (<200); Estimated Glomerular Filt Rate > 60; HDL Cholesterol 33 mg/dL (>40); Potassium 4.2 mmol/L (3.3-5.1); Sodium 137 mmol/L (135-145); Total Protein 7.9 g/dL (6.5-8.0); Triglycerides 167 mg/dL (<150)
[2025-07-25 14:42] LABS: Microalbum/Creatinine Ratio Ur 7.6 ug/mg cr (<30)
== END 2025-07-25 09:12 | disposition home or self-care (01) ==
LOC: HO.HMGCLDS 09:11
PROVIDERS: Internal Medicine; PCP Internal Medicine; Visit Provider Internal Medicine
DX: E11.9 Type 2 diabetes mellitus without complications (principal); F41.1 Generalized anxiety disorder; E66.09 Other obesity due to excess calories; Z68.36 Body mass index [BMI] 36.0-36.9, adult; F51.04 Psychophysiologic insomnia; R79.89 Other specified abnormal findings of blood chemistry
CPT/HCPCS: 36415; 80053; 80061; 82043; 82306; 82570; 83036

== ENCOUNTER 2025-08-02 09:05 | Outpatient (AMB) | payer OTHER, SELFPAY ==
[2025-08-02 09:21] VITALS: BP 124/80; PULSE 111; TEMP 36.7; O2SAT 98; BMI 42.7
--- NOTE | 2025-08-02 09:21 | A.OFFPC_ITS ---
Vital Signs 08/02/25 09:21 Height 5 ft 3 in Weight 241 lb BMI 42.7 BP 124/80 Blood Pressure Location Lt brachial Position Sitting Pulse 111 H Pulse Source Pulse Oximeter Temp 98.0 F Temp Source Oral Pulse Oximetry (%) 98 Oxygen Delivery Method Room Air Intake Visit Reasons: 3m follow up Intake Note: Pt is here today for her 3mo. Tea Taster Required: No Allergies kiwi Allergy (Unknown, Verified 08/03/25 14:12) Itching tree nut Allergy (Unknown, Verified 08/03/25 14:12) sore throat [facility] Adverse Reaction (Verified 08/03/25 14:12) Insomnia Medication List - Last Reconciled 08/03/25 by Dunia Sebastian MD cholecalciferol (vitamin D3) 62.5 mcg PO DAILY 3 months MDD 62.5mcg desvenlafaxine succinate ER 25 mg PO DAILY drospirenone-e.estradiol-lm.FA 3-0.02-0.451 mg (24) (4) 1 tab PO DAILY guanfacine 2 mg PO BEDTIME magnesium glycinate 200 mg PO BEDTIME mecobalamin (vitamin B12) 1,000 mcg sublingual BEDTIME 3 months MDD 1000mcg metformin ER (Glucophage XR) 500 mg PO QPM methylphenidate HCl ER (Concerta) 18 mg PO DAILY Mounjaro (tirzepatide) 2.5 mg (0.5 mL) subcut QWEEK 30 days NS multivitamin 1 tab PO DAILY psyllium husk (Metamucil) 0.4 grams PO DAILY Saccharomyces boulardii (Daily Probiotic (S. boulardii)) 250 mg PO BID sodium fluoride-pot nitrate 1.1-5 % PO suvorexant (Belsomra) 15 mg PO BEDTIME Tobacco use date assessed: 08/02/25 Dental Screening Dental Screen Date: 08/02/25 Did you have a dental visit in the last 12 months?: Yes Did you have a dental problem in the last 6 months where you did not have access to dental care?: No Was dental information given to patient?: Patient has dentist HPI 3m follow up HPI Details The patient is a 35-year-old female presenting for follow-up on her diabetes mellitus. Her recent blood work a fasting glucose level of 175 mg/dL, hemoglobin A1c at 7.7% with an average glucose level in the 170s. She is currently on metformin and has been compliant with recommended diet, and has ordered walking regularly for exercise. Her latest labs also showed elevated thyroid-stimulating hormone (TSH) level, though her thyroid hormone levels remain within the normal range. There is a family history of thyroid issues. No signs and symptoms of thyroid disorder She also reports recurrent soreness in the heel and arch of the foot, particularly when getting up and walking after periods of rest. She is scheduled to see Dr. Evans next week for further evaluation and management. The patient has polycystic ovary syndrome (PCOS) and is using hormonal contraceptives for regulation rather than control. She reports no significant issues with her current regimen. She was recently seen for her routine eye exam and diabetes retinopathy screening by her eye doctor in [place], with no retinopathy seen. She already received her yearly flu shot and COVID booster. [facility] Medical History (Updated 08/03/25 @ 14:27 by Dunia Sebastian MD) Diabetes mellitus with hyperglycemia, without long-term current use of insulin Elevated TSH Dyslipidemia Pain of plantar aspect of heel ADHD Chronic insomnia Sleeping difficulties Elevated fasting glucose Generalized anxiety disorder Chronic pelvic pain syndrome in female Menstrual periods irregular Tachycardia Impaired fasting glucose Obesity History of urinary urgency Surgical History No pertinent past surgical history Family History Father Depression Substance use disorder Mental health disorder Sister Depression Mental health disorder Maternal Grandmother Depression Mental health disorder Maternal Grandfather Diabetes mellitus Social History Housing: Apartment Alcohol intake: current Patient Tobacco Use Status: Never used Tobacco e-Cigarette/Vaping Use: Never Used service: No Current occupational status: employed 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 1. Little interest or pleasure in doing things: not at all 2. Feeling down, depressed, or hopeless: not at all 3. Trouble falling or staying asleep, or sleeping too much: more than half the days 4. Feeling tired or having little energy: more than half the days 5. Poor appetite or overeating: several days 6. Feeling bad about yourself - or that you are a failure or have let yourself or your family down: not at all 7. Trouble concentrating on things, such as reading the newspaper or watching t elevision: not at all 8. Moving or speaking so slowly that other people could have noticed. Or the opposite - being so fidgety or restless that you have been moving around a lot more than usual: not at all 9. Thoughts that you would be better off or of hurting yourself in some way: not at all Total score: 5 Depression Screening Interpretation: Negative Depression Screening Done: Yes Source: Developed by Drs. Jerzy Holguin, Tanisha Babin, Froylan Joshi and colleagues, with an educational tammi from [employer]. Thrive Questionnaire Date Thrive assessed: 05/02/25 I am a: Patient What is your living situation today?: I have a steady place to live Within the past 12 months, did the food you bought not last and you didn't have the money to get more?: Never true Within the past 12 months, did you worry whether your food would run out before you got money to buy more?: Never true Do you have trouble paying for medicines?: No Do you have trouble getting transportation to medical appointments?: No Do you have trouble paying your heating and electricity bill?: No Do you have trouble taking care of your child, family member or friend?: No Do you have trouble with day-to-day activities such as bathing, preparing meals, shopping, managing finances, etc.?: No Are you currently unemployed and looking for a job?: No Are you interested in more education?: No Please select the resources that you would like help with: None Currently or been in a relationship where the following occur: No concerns reported THRIVE Score: 0 AUDIT C Alcohol Use Questionnaire (AUDIT-C) 1. How often do you have a drink containing alcohol?: Never 3. How often do you have six or more drinks on one occasion?: Never Total Score: 0 BARBRA-7 AMB Questionnaire BARBRA-7 Date BARBRA - 7 assessed: 04/25/25 Feeling nervous, anxious, or on edge: 1 = Several days Not being able to stop or control worryin = Several days Worrying too much about different things: 0 = Not at all Trouble relaxin = Not at all Being so restless that it is hard to sit still: 0 = Not at all Becoming easily annoyed or irritable: 2 = More than half the days Feeling afraid as if something awful might happen: 1 = Several days Total BARBRA-7 score (0-4 normal; 5-9 mild; 10-14 moderate; 15-21 severe): 5 Source: Developed by Drs. Jerzy Holguin, Tanisha Babin, Froylan Joshi and colleagues, with an educational tammi from [employer]. 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 Denies change in vision ENT Denies dizziness, Denies headache(s), Denies nasal congestion and Denies nasal discharge Card Denies chest pain, Denies lightheadedness, Denies palpitations (only when going to doctor's appointments ) and Denies dyspnea Resp Denies chest congestion, Denies cough, Denies dyspnea and Denies wheezing GI Denies abdominal pain, Denies change in bowel habits and Denies heartburn Denies urinary frequency, Denies dysuria and Denies urinary urgency Musc Reports no additional complaints Neuro Denies dizziness and Denies headache(s) Psych Reports no additional complaints Endo Denies polydipsia, Denies polyuria and Denies palpitations (only when going to doctor's appointments ) Sathish/Lymph Reports no additional complaints Aller/Immun Denies seasonal rhinorrhea and Denies wheezing Physical exam (Primary Care) Vital Signs: Last Vital Signs Temp 98.0 F 08/02/25 09:21 Pulse 111 H 08/02/25 09:21 BP 124/80 08/02/25 09:21 Pulse Ox 98 08/02/25 09:21 Oxygen Delivery Method Room Air 08/02/25 09:21 BMI result Body Mass Index 42.7 Tobacco/Smoking Status: Tobacco use Status Tobacco use date assessed 08/02/25 08/02/25 09:23 Patient Tobacco Use Status Never used Tobacco 08/02/25 09:22 e-Cigarette/Vaping Use Never Used 08/02/25 09:22 PHQ-9: PHQ-9 Score PHQ-9: Total score 5 08/03/25 14:18 Depression Screening Interpretation: Negative Thrive Assessment: Date of Thrive Assessment Date Thrive assessed 05/02/25 08/02/25 09:22 Currently or been in a relationship where the following occur: No concerns reported Const General: no acute distress Nutritional Appearance: obese Orientation/consciousness: patient oriented x3 HENMT Ears: external ears normal General nose exam: Normal external nose present Mouth: Normal oral and palatal mucosa present and moist mucous membranes Throat: Yes posterior oropharynx normal Eyes General: appearance normal, both eyes and all related structures Conjunctivae: conjunctivae normal Pupils: Equal, round and reactive pupils present EOM: EOMs intact bilaterally Neck Neck: Yes full ROM, Yes no lymphadenopathy and Yes supple Resp Effort & Inspection: normal respiratory effort and able to speak in complete sentences Auscultation: clear to auscultation bilaterally Cardio Rhythm: regular rhythm Heart sounds: S1 normal heart sound present and S2 normal heart sound present GI Inspection: Yes normal to inspection Palpation (GI): Soft to palpation, nontender and no masses Auscultation: normal bowel sounds General: Yes deferred Neuro General: patient oriented x3, gait normal, tone normal, moves all extremities, Normal light touch and pain sensation and no focal motor deficits Cranial nerves: Yes Equal, round and reactive pupils present Cognition (Neuro): normal cognition Gait exam (Neuro): Normal gait present Motor exam (neuro): 5/5 motor strength present throughout Extrem General: Yes normal to inspection, Yes full ROM, Yes no joint enlargement, Yes no pedal edema and Yes normal gait Psych Appearance: grossly normal Mental Status: mental status grossly normal Speech and movement: Normal speech and movement present Affect: normal affect Results Reviewed Results Reviewed: Laboratory Tests 07/25/25 07/25/25 09:59 10:05 Estimat Average Glucose 174 Hemoglobin A1c % 7.7 H Urine Creatinine 118.08 Urine Microalbumin 9.0 Microalb/Creat Ratio 7.6 Name: Joycelyn Munguia Age/Sex: 35/F : 1990 Unit#: [id number] Attend Dr: Ida Fajardo MD Re07/25/25 Status: DEP REF Location: [facility] Disch: SPEC : [id number] TIANA: 07/25/25 STATUS: COMP REQ : [id number] RECD: 07/25/[address]: Dunia Sebastian MD COMP: 07/25/25 ENTERED: 07/25/25 [facility] DR: Ida Fajardo MD ORDERED: CMP Fast, Lipid Panel, Vitamin D 25-OH Test Result Flag Reference Sodium 137 135-145 mmol/L Potassium 4.2 3.3-5.1 mmol/L CL 105 96-108 mmol/L CO2 25 22-29 mmol/L Gap 11 L 12-20 BUN 8 L 9-16 mg/dL Creat 0.59 0.5-1.4 mg/dL eGFR > 60 Chronic Kidney Disease: Estimated GFR < 60 mL/min/1.73m2 Severe Kidney Disease: Estimated GFR < 15 mL/min/1.73m2 FBS 175 H 60-99 mg/dL A fasting glucose of 126 mg/dl or greater on more than one occasion is considered diagnostic of diabetes. CA 9.4 8.4-10.2 mg/dL Total Bili 0.3 0.0-1.0 mg/dL AST (GOT) 45 H 5-31 U/L ALT (GPT) 31 0-31 U/L Protein, Total 7.9 6.5-8.0 g/dL Alb 4.1 3.5-5.0 g/dL Triglyceride 167 H <150 mg/dL Desirable Triglyceride: less than 150 mg/dL Borderline High Triglyceride 150-199 mg/dL High Triglyceride: 200-499 mg/dL Very High Triglyceride: greater than or equal to 5OO mg/dL Cholesterol 177 <200 mg/dL Desirable Cholesterol: less than 200 mg/dL Borderline High Cholesterol: 200-239 mg/dL High Cholesterol: greater than 239 mg/dL LDL Calculated 111 H <100 mg/dL Desirable LDL: less than 100 mg/dL Near Optimal/Above Optimal LDL: 110-129 mg/dL Borderline High LDL: 130-159 mg/dL High LDL: 160-189 mg/dL Very High LDL: greater than or equal to 190 mg/dL HDL 33 L >40 mg/dL Desirable HDL: greater than 40 mg/dL Note: This HDL assay may give artificially low results in patients with liver disease. Alk Phos 60 39-117 U/L Vitamin D 25-OH 46.5 >30 ng/mL Health Based Reference Values* < 20 ng/mL Deficient 20-30 ng/mL Insufficient > 30 ng/mL Sufficient Coding Level of Care Code Est Pt Level 4 (62602) Complex EM visit Add On G2211 Diagnoses Diabetes mellitus with hyperglycemia, without long-term current use of insulin E11.65 Class 2 obesity due to excess calories without serious comorbidity with body mass index (BMI) of 36.0 to 36.9 in adult E66.09; Z68.36 Body mass index: BMI 36.0-36.9 Obesity classification: adult class 2 (BMI 35 - 39.9) Obesity type: due to excess calories Serious obesity comorbidity presence: without serious comorbidity Dyslipidemia E78.5 Elevated TSH R79.89 Assessment & Plan Assessment & Plan (1) Diabetes mellitus with hyperglycemia, without long-term current use of insulin: Code(s): E11.65 - Type 2 diabetes mellitus with hyperglycemia Category: Medical Plan: Recent lab results reviewed with patient, with sugar and hemoglobin A1c improving but not at goal . Continued on metformin ER 500 mg to take once a day with a meal, and will add Mounjaro 2.5 mg injected subcutaneously once a week. Patient for possible side effects of medication which may include constipation, nausea, abdominal bloating, advised not to keep using if any severe abdominal pain occurs, advised to let her eye doctor know that she is on it she needs regular eye exams. continue to check fasting blood sugar at home, maintain log and bring to next appointment for review. Reinforced diabetic diet and regular exercise with patient. Counseled regarding importance of yearly diabetes retinopathy screening. Patient advised to inspect feet daily, for any signs of injury, callus or infection, has an appointment with Dr. Evans next week. Compliance with diet and regular exercise again stressed. Blood pressure goal is less than 130/80, goal LDL is less than 100 and goal hemoglobin A1c is less than 7% follow-up appointment made 4 weeks after starting Mounjaro (2) Obesity: Code(s): E66.9 - Obesity, unspecified Category: Medical Qualifiers: Body mass index: BMI 36.0-36.9 Obesity classification: adult class 2 (BMI 35 - 39.9) Obesity type: due to excess calories Serious obesity comorbidity presence: without serious comorbidity Qualified Code(s): E66.09 - Other obesity due to excess calories; Z68.36 - Body mass index [BMI] 36.0-36.9, adult Plan: Continue adherence to healthy eating habits and getting at least 15 minutes of moderate intensity exercise daily. Currently on metformin and started on Mounjaro 2.5 mg injected once a week (3) Dyslipidemia: Code(s): E78.5 - Hyperlipidemia, unspecified Category: Medical Plan: Patient does not want to start any statin at present time, continue with adherence to healthy diet and getting regular exercise, started on Mounjaro and will see how her lipid levels will be after being on it for at least 3 months (4) Elevated TSH: Code(s): R79.89 - Other specified abnormal findings of blood chemistry Category: Medical Plan: Slight elevation in TSH noted with free T4 within normal limits. Will continue to monitor thyroid levels. Orders: Orders Triiodothyronine T3 Free 3 Months E11.9 - Type 2 diabetes mellitus without complications, E66.09 - Other obesity due to excess calories, E78.5 - Hyperlipidemia, unspecified, R79.89 - Other specified abnormal findings of blood chemistry, Z68.36 - Body mass index [BMI] 36.0-36.9, adult Thyroid Stimulating Hormone 3 Months E11.9 - Type 2 diabetes mellitus without complications, E66.09 - Other obesity due to excess calories, E78.5 - Hyperlipidemia, unspecified, R79.89 - Other specified abnormal findings of blood chemistry, Z68.36 - Body mass index [BMI] 36.0-36.9, adult Hemoglobin A1c 3 Months E11.9 - Type 2 diabetes mellitus without complications, E66.09 - Other obesity due to excess calories, E78.5 - Hyperlipidemia, unspecified, R79.89 - Other specified abnormal findings of blood chemistry, Z68.36 - Body mass index [BMI] 36.0-36.9, adult Comprehensive [place]. Panel Fast 3 Months E11.9 - Type 2 diabetes mellitus without complications, E66.09 - Other obesity due to excess calories, E78.5 - Hyperlipidemia, unspecified, R79.89 - Other specified abnormal findings of blood chemistry, Z68.36 - Body mass index [BMI] 36.0-36.9, adult Lipid Panel 3 Months E11.9 - Type 2 diabetes mellitus without complications, E66.09 - Other obesity due to excess calories, E78.5 - Hyperlipidemia, unspecified, R79.89 - Other specified abnormal findings of blood chemistry, Z68.36 - Body mass index [BMI] 36.0-36.9, adult Vitamin D 25-OH Total 3 Months E11.9 - Type 2 diabetes mellitus without co mplications, E66.09 - Other obesity due to excess calories, E78.5 - Hyperlipidemia, unspecified, R79.89 - Other specified abnormal findings of blood chemistry, Z68.36 - Body mass index [BMI] 36.0-36.9, adult Thyroid Peroxidase Antibodies 3 Months E11.9 - Type 2 diabetes mellitus without complications, E66.09 - Other obesity due to excess calories, E78.5 - Hyperlipidemia, unspecified, R79.89 - Other specified abnormal findings of blood chemistry, Z68.36 - Body mass index [BMI] 36.0-36.9, adult Vitamin B12 and Folate 3 Months R53.83 - Other fatigue Medications: New Mounjaro (tirzepatide) for 4 weeks 2.5 mg (0.5 mL) subcut QWEEK 2 mL 5RF 30 days NS E11.9 - Type 2 diabetes mellitus without complications, E66.09 - Other obesity due to excess calories, E78.5 - Hyperlipidemia, unspecified, Z68.36 - Body mass index [BMI] 36.0-36.9, adult
--- OUTSIDE RECORDS SUMMARY | 2025-08-02 10:10 | XMS_ITS | Patient Health Record ---
Author Organization [facility] Address [address] [place] [address] Support Name Relationship Address Phone MADISYN MCCLURE Guarantor Unknown [phone] Reason For Referral No Information Medications Medication [...] Notes Problem Surveillance of oral contraception done ([id number]) Surveillance of previously prescribed contraceptive pill (V25.41) Active confirmed Diag Plan Of Treatment No Information Insurance Providers Payer Name Payer Address Payer Phone Subscriber Number Group Number Insured Name Patient Relationship to Insured Coverage Start Date Coverage End Date [employer] [address] [place] [id number] MADISYN MCCLURE Self - patient is the insured
--- OUTSIDE RECORDS SUMMARY | 2025-08-02 10:10 | XMS_ITS | Clinical Summary ---
Author Organization [facility] Address [address] [place] [id number] Phone Care Team Providers Care Lugger Name Role Phone Dunia Sebastian MD Primary [...] topic Medical Devices Not on file Insurance [facility] [employer] [address] [place] [id number] [facility] [employer] [address] [place] [id number] [facility] [employer] [address] [place] [id number] [facility] [employer] [address] [place] [id number] [facility] [address] [place] [id number] [facility] [address] [place] [id number] [facility] [employer] 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 It is not the complete legal health record.[facility]
--- OUTSIDE RECORDS SUMMARY | 2025-08-02 10:10 | XMS_ITS | Patient Health Record ---
[facility] Address [address] [place] [address] Care Team Providers Care Dietitian Chief Name Role Phone Romulo DONALDSON, Dunia Oviedo Primary Care Provider Un available Arlene Evans Unavailable [phone] Allergies Allergen (clinical drug ingredient) Drug/Non Drug [...] Treatment Pending Test Test Name Order Date [id number] Plate 05/18/2016 Next Appt Details Provider Name:Arlene Evans , 08/06/2025 10:30:00 AM, [address] [facility], [place], [address], Insurance Providers Payer Name Payer Address Payer Phone Subscriber Number Group Number Insured Name Patient Relationship to Insured Coverage Start Date [facility]age End Date [facility] [address] [place] [phone] [id number] Joycelyn Munguia Self - patient is the insured Medical (General) History Medical History History ICD Code Anxiety disorder Depression Headaches Migraines Chicken pox covid-19 Diabetic Psychiatric disorder
== END 2025-08-02 10:30 | disposition home or self-care (01) ==
LOC: HO.HMCC 09:07
PROVIDERS: PCP Internal Medicine; Visit Provider Internal Medicine
DX: E11.65 Type 2 diabetes mellitus with hyperglycemia (principal); E66.09 Other obesity due to excess calories; Z68.36 Body mass index [BMI] 36.0-36.9, adult; E78.5 Hyperlipidemia, unspecified; R79.89 Other specified abnormal findings of blood chemistry

== ENCOUNTER 2025-08-22 08:00 | Outpatient (AMB) | payer OTHER, SELFPAY ==
--- NOTE | 2025-08-22 08:00 | A.OFFVIS_ITS ---
Intake Visit Reasons: Initial Diabetes Nutrition Assessment Allergies kiwi Allergy (Unknown, Verified 08/03/25 14:12) Itching tree nut Allergy (Unknown, Verified 08/03/25 14:12) sore throat aripiprazole (From Yasmani) Adverse Reaction (Verified 08/03/25 14:12) Insomnia Nutrition Presentation Details: Has done pelvic floor PT in the past. Reports a 30# weight gain over the past year. Does report having a somewhat active eating disorder depending on work stress. Works 2-10 pm and then has a very difficult time falling asleep so ends up snacking throughout the night. Does have a therapist to help with binge eating. Pt will decide if she wants to pursue an education program specialist for nutrition management. Is working with MD to try and get a shift change at work. Well knows that she is not hydrating well and wants to make that a priority. Psyllium pills cause stomach upset. Reason for consult: initial DM maintenance GI symptoms: reports dyspepsia, diarrhea (had diarrhea as a kid on a frequent basis), constipation (prior to GLP they were very difficult, has tried psyllium fiber) and other (on GLP, no nausea, constipation persists, BMS are much smaller, incomplete) Food allergies/aversions: Yes (tree nuts, kiwi-itchy throat) Alcohol assessment: Reviewed (none) Physical activity assessment: Reviewed (nothing yet-just met with a chyron operator, just got a walking pad) Other problems/issues: Sunday 08/19 * 3 Eggo protein blueberry pancakes * Suyapa milling lite syrup? * Light Prune juice 8oz * Protein smoothie: 2 cups of frozen raspberries, water, 1 scoop of optimum nutrition whey protein? * Healthy Choice Simply Steamers - Beef Chimichurri * Whole Grain Goldfish Crackers? * 3 mini crunch bars * Water (around 40oz) Monday 08/20 * Lite Prune Juice 8oz * Unsweetened Applesauce (roughly 1.5 cups) * One protein bar: hersheys chocolate? * Oikos Triple Zero Mixed Muhammad Yogurt? * Healthy Choice - Simply Steamers Meatball Marinara? * Water (around 36oz) Diet Assmnt Current diet assessment: Reviewed Dietary counseling: reduction Who buys your food: self Who prepares/cooks your food: self Lifestyle Emotional Eating: Reports stress, comfort/relaxation and boredom Eating out: 1-3 times/week Reads food labels: Yes Exercise: No BS Monitoring Details: not currently checking blood sugars at this time Most Recent Diabetes Results: Cholesterol, (<200) 177 mg/dL 07/25/25 HDL Cholesterol, (>40) 33 mg/dL L 07/25/25 Triglycerides, (<150) 167 mg/dL H 07/25/25 Creatinine, (0.5-1.4) 0.59 mg/dL 07/25/25 BUN, (9-16) 8 mg/dL L 07/25/25 AST, (5-31) 45 U/L H 07/25/25 ALT, (0-31) 31 U/L 07/25/25 Assessment Assessment details: Pt is likely not eating enough protein and fiber and not doing enough physical activity to support muscle preservation while on the GLP-1 medication. Extensive discussion had with patient about the goal to minimize risk of loss of lean body mass. Body recomposition will promote shift of fat and muscle mass and increase strength and bone health while managing blood sugar. Pt will also benefit from a specialist who can help manage hormone health regarding PCOS. Given setting of disordered eating (binge),pt is going to consider the [employer] program and will discuss her preferences and triggers with her therapist to determine which RD team she feels most comfortable with [facility]. Nutrition recommendation: initiate supplement (Switch to fiber powder rather than supplement) and RD nutrition education Focused findings Nutrition-focused findings: constipation WRY-Vgspaxl-Pa.Jeor Equation Calculated Activity Level: Sedentary Diagnosis Nutrition problem #1: food nutri know defi and inadequate energy intake As related to (etiology) #1: altered metabolism nutri, diagnosis, increased PRO needs and physical inactivity As evidenced by (sign/symptom) #1: food recall, poor PO intake, constipation, high BMI, prior fail - chg behavior and knowledge deficit of diet Monitoring/Goals Nutrition problem monitoring: total energy intake, level of knowledge/skill, total PRO intake, glucose, fasting and oral fluids Nutrition goal/outcome: list 3 diab diet goals, HgbA1c <7% in 3 months, list 3 CHO foods and list 3 high fiber foods Outcome progress: verbalized understanding Learning/Education Readiness to learn: excellent Stages of change: action Educational materials provided: Yes (planning meals, snack guide, GLP education) Date of nutrition screenin08/22/25 Date of nutritional follow-up: 09/19/25 Follow up Follow-up frequency: monthly Time Outcome assessment time: 60 minutes [facility] Medical History (Updated 08/03/25 @ 14:27 by Dunia Sebastian MD) Diabetes mellitus with hyperglycemia, without long-term current use of insulin Elevated TSH Dyslipidemia Pain of plantar aspect of heel ADHD Chronic insomnia Sleeping difficulties Elevated fasting glucose Generalized anxiety disorder Chronic pelvic pain syndrome in female Menstrual periods irregular Tachycardia Impaired fasting glucose Obesity History of urinary urgency Surgical History No pertinent past surgical history Family History Father Depression Substance use disorder Mental health disorder Sister Depression Mental health disorder Maternal Grandmother Depression Mental health disorder Maternal Grandfather Diabetes mellitus Social History Housing: Apartment Alcohol intake: current Patient Tobacco Use Status: Never used Tobacco e-Cigarette/Vaping Use: Never Used service: No Current occupational status: employed 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 Current occupational exposures/hazards: No Cognitive needs: No Hearing needs: No Vision needs: No Review of Systems GI Reports constipation (prior to GLP they were very difficult, has tried psyllium fiber), Reports dyspepsia and Reports diarrhea (had diarrhea as a kid on a frequent basis) Telehealth Telehealth Telehealth Platform: Other (please specify) (Zoom) Location of provider rendering services: practice address Location of patient: address on file Patient Identification confirmed using: Name, : Yes Telehealth method: video Patient verbally consented to treatment: Yes Minutes spent on Phone/Video with Pt.: 60 Assessment & Plan Assessment & Plan (1) Diabetes mellitus with hyperglycemia, without long-term current use of insulin: Code(s): E11.65 - Type 2 diabetes mellitus with hyperglycemia Category: Medical Plan 1. switch to powdered fiber to mix with water 2. begin using walking pad 3. start having breakfast 3-4 days a week Coding Level of Care Code Nutr Indiv Intake (35767) Diagnoses Diabetes mellitus with hyperglycemia, without long-term current use of insulin E11.65
--- OUTSIDE RECORDS SUMMARY | 2025-08-22 08:04 | XMS_ITS | Patient Health Record ---
[facility] Address [address] [place] [address] Care Team Providers Care Yoga Instructor Name Role Phone Romulo DONALDSON, Dunia Oviedo Primary Care Provider Un available Black, Arlene Unavailable [phone] Allergies Allergen (clinical drug ingredient) Drug/Non Drug Allergy documented on EMR Reaction Allergy Type Onset Date Status aripiprazole Abilify can't sleep Drug Allergy Ac tive Results Component Value Reference Range Notes X ray : Foot, left 3V Reviewed date:08/06/2025 08:49:35 PM Interpretation:See Examination above Performing Lab: Notes/Report: See Examination above X ray : Foot, right 3V Reviewed date:08/06/2025 08:49:08 PM Interpretation:See Examination above Performing Lab: Notes/Report: See Examination above HEMOGLOBIN A1C (GLYCOHEMOGLO BIN) Reviewed date:08/06/2025 10:30:17 AM Interpretation: Performing Lab: Notes/Report: HEMOGLOBIN A1C % (HH) 8.2 HEMOGLOBIN A1C (GLYCOHEMOGLO BIN) Reviewed date:08/06/2025 10:43:56 AM Interpretation: Performing Lab: Notes/Report: HEMOGLOBIN A1C % (HH) 7.7 Reason For Referral Diagnosis 1 Type 2 diabetes chely itus without complication (E11.9) Diagnosis 2 Plantar fasciitis, b ilateral (M72.2) Diagnosis 3 Ingrowing nail (L60. 0) Diagnosis 4 Calcaneal spur, righ t foot (M77.31) Diagnosis 5 Calcaneal spur, left foot (M77.32) Diagnosis 6 Bursitis of right fo ot (M77.51) Diagnosis 7 Contusion of left gr eat toe with damage to nail, initial encounter (S90.212A) Diagnosis 8 Other myositis of ri ght foot (M60.871) Diagnosis 9 Other myositis of le ft foot (M60.872) Diagnosis 10 Pain in left foot (M 79.672) Diagnosis 11 Pain in right foot ( M79.671) Referring Provider First Name Dunia Dejesus Referring Provider Last Name Romulo Referring Provider Speciality Internal M edicine Referred Organization [facility] Referred Provider Arlene Evans Referred Address [address] [place], [place],[address],[place] Referred Provider Specialty Podiatry Referral Priority Routine Medications Medication SIG (Take, Route, Frequency, Duration) Notes Start Date End Date Status guanFACINE HCl 2 MG 1 tablet at bedtime Orally Once a day Active metFORMIN HCl 500 MG 1 tablet with a fabricio l Orally Once a day Active Belsomra 10 MG 1 tablet at bedtime as needed Orally Once a day Active Pristiq 25 MG 1 tablet Orally Once a day Active LORazepam 1 MG 1 tablet at bedtime as needed Orally Once a day Unknown Drospiren-Eth Estrad-Levomefol 3-0.02-0.451 MG Oral; Duration: 84 Days A ctive Beyaz Active Escitalopram Oxalate 20 MG 0.5 tablet Or ally Once a day Unknown Fiber Active Night Splint AFO - L1930 1 wear at rest; Duration: 30 days Active Multivitamin Active Magnesium Glycinate Active Probiotic Active Immunizations Vaccine Route Administration Date Status Comme nts Influenza Unknown 07/18/2025 Administered Social History Tobacco Use: Social History Observation Description Date Details (start date - stop date) Never Smoker NA - NA Tobacco use other than smoking: Question Answer Notes Are you an other tobacco user? No Tobacco Control (Standard) Question Answer Notes Tobacco use: Nonsmoker Additional Findings: Tobacco non-user Current no nsmoker AUDIT-C (Standard) Question Answer Notes Did you have a drink containing alcohol in the p ast year? No Points 0 Interpretation Negative Problems Problem Type SNOMED Code ICD Code Onset Dates Problem Status W/U Status Risk Notes Problem Type II diabetes mellitus without complication (183356870) Type 2 diabetes mellitus without complication (E11.9) Active confirmed Problem Plantar fascial fibromatosis (35293341) Plantar fasciitis, bilateral (M72.2) Active confirmed Vital Signs Blood pressure diastolic 80 mm Hg 08/06/2025 Height 5ft3in in 08/06/2025 Blood pressure systolic 132 mm Hg 08/06/2025 Weight 245 lbs 08/06/2025 BMI 43.4 kg/m2 08/06/2025 Procedures Procedure Date Ordered Date Performed Result Body Sit e 12070-YPNJ SKIN LESIONS, 2 TO 4 08/06/2025 N/A Encounters Encounter Location Date Provider Diagnosis [address] [address] 08/06/2025 Arlene Nathan Type 2 diabetes mellitus without complication E11.9 ; Plantar fasciitis, bilateral M72.2 ; Pain in right foot M79.671 ; Calcaneal spur, right foot M77.31 ; Other myositis of right foot M60.871 ; Bursitis of right foot M77.51 ; Pain in left foot M79.672 ; Calcaneal spur, left foot M77.32 ; Other myositis of left foot M60.872 and Bursitis of left foot M77.[address] [address] 08/06/2025 [facility] [address] 08/06/2025 Arlene Evans Assessments Encounter Date Diagnosis (ICD Code) Assessment Notes Treatment Notes Treatment Clinical Notes Section Notes 08/06/2025 Type 2 diabetes mellitus without complication (ICD-10 - E11.9) 08/06/2025 Plantar fasciitis, bilateral (ICD-10 - M72.2) Patient Educated with: HEEL CORD STRETCHES.pdf (HEEL CORD STRETCHES.pdf) Patient Educated with: RICE THERAPY.pdf (RICE THERAPY.pdf) 08/06/2025 Pain in right foot (ICD-10 - M79.671) 08/06/2025 Calcaneal spur, right foot (ICD-10 - M77.31) 08/06/2025 Other myositis of right foot (ICD-10 - M60.871) 08/06/2025 Bursitis of right foot (ICD-10 - M77.51) 08/06/2025 Pain in left foot (ICD-10 - M79.672) 08/06/2025 Calcaneal spur, left foot (ICD-10 - M77.32) 08/06/2025 Other myositis of left foot (ICD-10 - M60.872) 08/06/2025 Bursitis of left foot (ICD-10 - M77.52) Plan Of Treatment Pending Test Test Name Order Date [id number]-Awytgske Plate 05/18/2016 [id number] SKIN LESIONS, 2 TO 4 08/06/20 25 Next Appt Details Provider Name:Arlene Evans , 11/01/2025 10:15:00 AM, [address] [place], [address], Insurance Providers Payer Name Payer Address Payer Phone Subscriber Number Group Number Insured Name Patient Relationship to Insured Coverage Start Date Coverage End Date Moran Tye [address] [place] [phone] [id number] Chandrakant [place] Child - Insured has Financial Responsibility Medical (General) History Medical History History ICD Code Anxiety disorder Depression Headaches Migraines Chicken pox covid-19 Diabetic Psychiatric disorder Surgical History Surgery Date(Month/Year) oral surgery
--- OUTSIDE RECORDS SUMMARY | 2025-08-22 08:04 | XMS_ITS | Clinical Summary ---
Author Organization [facility] Address [address] [place] [id number] Phone Care Team Providers Care Bottle Packer Name Role Phone Dunia Sebastian MD Primary [...] topic Medical Devices Not on file Insurance [facility] [employer] [address] [place] [id number] [facility] [address] [place] [id number] [facility] [address] [place] [id number] [facility] [address] [place] [id number] [facility] [employer] [address] [place] [id number] [facility] [address] [place] [id number] [facility] [employer] 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 It is not the complete legal health record.[facility]
--- OUTSIDE RECORDS SUMMARY | 2025-08-22 08:04 | XMS_ITS | Patient Health Record ---
Author Organization [facility] Address [address] [place] [address] Support Name Relationship Address Phone MADISYN MCCLURE Guarantor Unknown [phone] Reason For Referral No Information Medications Medication [...] Notes Problem Surveillance of oral contraception done ([id number]) Surveillance of previously prescribed contraceptive pill (V25.41) Active confirmed Diag Plan Of Treatment No Information Insurance Providers Payer Name Payer Address Payer Phone Subscriber Number Group Number Insured Name Patient Relationship to Insured Coverage Start Date Coverage End Date [employer] [address] [place] [id number] MADISYN MCCLURE Self - patient is the insured
== END 2025-08-22 09:45 | disposition home or self-care (01) ==
LOC: HO.HMCCN 08:00
PROVIDERS: PCP Internal Medicine; Visit Provider Dietitian, Registered
DX: E11.65 Type 2 diabetes mellitus with hyperglycemia (principal)

== ENCOUNTER → 2025-08-22 08:00 | Outpatient (BNVA) | payer OTHER, SELFPAY | PROVIDERS: PCP Internal Medicine; Visit Provider Dietitian, Registered | DX: E11.65 Type 2 diabetes mellitus with hyperglycemia (principal) | CPT/HCPCS: 97802 ==

== ENCOUNTER 2025-09-05 11:09 | Outpatient (AMB) | payer OTHER, SELFPAY ==
--- NOTE | 2025-09-05 11:14 | MHC.PC.OV ---
Vital Signs 09/05/25 11:30 Height 5 ft 3 in Weight 232 lb BMI 41.1 BP 110/74 Blood Pressure Location Rt brachial Position Sitting Respiration 16 Pulse 97 Pulse Source Pulse Oximeter Temp 98.1 F Temp Source Oral Pulse Oximetry (%) 98 Oxygen Delivery Method Room Air Intake Visit Reasons: 1 month follow up Intake Note: Pt is here today for her 1mo. 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: No Allergies kiwi Allergy (Unknown, Verified 09/05/25 11:41) Itching tree nut Allergy (Unknown, Verified 09/05/25 11:41) sore throat [facility] Adverse Reaction (Verified 09/05/25 11:41) Insomnia Medication List - Last Reconciled 09/05/25 by Dunia Sebastian MD cholecalciferol (vitamin D3) 62.5 mcg PO DAILY 3 months MDD 62.5mcg desvenlafaxine succinate ER 25 mg PO DAILY drospirenone-e.estradiol-lm.FA 3-0.02-0.451 mg (24) (4) 1 tab PO DAILY guanfacine 2 mg PO BEDTIME magnesium glycinate 200 mg PO BEDTIME mecobalamin (vitamin B12) 1,000 mcg sublingual BEDTIME 3 months MDD 1000mcg metformin ER (Glucophage XR) 500 mg PO QPM methylphenidate HCl ER (Concerta) 18 mg PO DAILY Mounjaro (tirzepatide) 2.5 mg (0.5 mL) subcut QWEEK 30 days NS multivitamin 1 tab PO DAILY psyllium husk (Metamucil) 0.4 grams PO DAILY Saccharomyces boulardii (Daily Probiotic (S. boulardii)) 250 mg PO BID sodium fluoride-pot nitrate 1.1-5 % PO suvorexant (Belsomra) 15 mg PO BEDTIME Tobacco use date assessed: 09/05/25 Dental Screening Dental Screen Date: 09/05/25 Did you have a dental visit in the last 12 months?: Yes Did you have a dental problem in the last 6 months where you did not have access to dental care?: No Was dental information given to patient?: Patient has dentist HPI 1 month follow up HPI Details The patient is a 35-year-old female presenting for follow-up on Type 2 Diabetes Mellitus and management of Mounjaro. Her last HbA1c was 7.7. She started Mounjaro 2.5 mg one month ago and has experienced a weight loss from 241 lbs to 232 lbs. She reports side effects including heartburn on the first day, decreased appetite during the first week, and episodes of stomach cramping for about an hour the day after injection on two or three occasions. She denies nausea, diarrhea, or significant constipation. The patient has a history of Polycystic Ovary Syndrome (PCOS), which was diagnosed based on symptoms of irregular periods, hirsutism under her chin, and hyperpigmentation. She has been on control for over ten years to manage these symptoms and reports they are better than they were previously. The patient has never had an ultrasound to examine her ovaries. She is considering getting in the future and was advised by a gameplay programmer to consult with a heating unit installer. The patient is working with a photographer portrait to increase protein, fiber, water intake, and exercise. She is up to date on her immunizations, having received both the flu and COVID shots in June. [facility] Medical History Diabetes mellitus with hyperglycemia, without long-term current use of insulin Elevated TSH Dyslipidemia Pain of plantar aspect of heel ADHD Chronic insomnia Sleeping difficulties Elevated fasting glucose Generalized anxiety disorder Chronic pelvic pain syndrome in female Menstrual periods irregular Tachycardia Impaired fasting glucose Obesity History of urinary urgency Surgical History No pertinent past surgical history Family History Father Depression Substance use disorder Mental health disorder Sister Depression Mental health disorder Maternal Grandmother Depression Mental health disorder Maternal Grandfather Diabetes mellitus Social History Housing: Apartment Alcohol intake: current Patient Tobacco Use Status: Never used Tobacco e-Cigarette/Vaping Use: Never Used service: No Current occupational status: employed 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 Current occupational exposures/hazards: No Cognitive needs: No Hearing needs: No Vision needs: No Questionnaire Thrive Questionnaire Date Thrive assessed: 05/02/25 I am a: Patient What is your living situation today?: I have a steady place to live Within the past 12 months, did the food you bought not last and you didn't have the money to get more?: Never true Within the past 12 months, did you worry whether your food would run out before you got money to buy more?: Never true Do you have trouble paying for medicines?: No Do you have trouble getting transportation to medical appointments?: No Do you have trouble paying your heating and electricity bill?: No Do you have trouble taking care of your child, family member or friend?: No Do you have trouble with day-to-day activities such as bathing, preparing meals, shopping, managing finances, etc.?: No Are you currently unemployed and looking for a job?: No Are you interested in more education?: No Please select the resources that you would like help with: None Currently or been in a relationship where the following occur: No concerns reported THRIVE Score: 0 BARBRA-7 AMB Questionnaire BARBRA-7 Date BARBRA - 7 assessed: 02/09/25 Source: Developed by Drs. Jerzy Holguin, Tanisha Babin, Froylan Joshi and colleagues, with an educational tammi from [employer]. Review of Systems Const Denies body aches and Denies headache(s) Eyes Details: [facility] , no retinopathy Denies change in vision ENT Denies dizziness, Denies headache(s), Denies nasal congestion and Denies nasal discharge Card Denies chest pain, Denies lightheadedness, Denies palpitations (only when going to doctor's appointments ) and Denies dyspnea Resp Denies chest congestion, Denies cough, Denies dyspnea and Denies wheezing GI Reports as per HPI Denies urinary frequency, Denies dysuria and Denies urinary urgency Musc Reports no additional complaints Neuro Denies dizziness and Denies headache(s) Psych Reports no additional complaints Endo Denies polydipsia, Denies polyuria and Denies palpitations (only when going to doctor's appointments ) Sathish/Lymph Reports no additional complaints Aller/Immun Denies seasonal rhinorrhea and Denies wheezing Physical exam (Primary Care) Vital Signs: Last Vital Signs Temp 98.1 F 09/05/25 11:30 Pulse 97 09/05/25 11:30 Resp 16 09/05/25 11:30 BP 110/74 09/05/25 11:30 Pulse Ox 98 09/05/25 11:30 Oxygen Delivery Method Room Air 09/05/25 11:30 BMI result Body Mass Index 41.1 Tobacco/Smoking Status: Tobacco use Status Tobacco use date assessed 09/05/25 09/05/25 11:36 Patient Tobacco Use Status Never used Tobacco 09/05/25 11:14 e-Cigarette/Vaping Use Never Used 09/05/25 11:14 Thrive Assessment: Date of Thrive Assessment Date Thrive assessed 05/02/25 09/05/25 11:14 Currently or been in a relationship where the following occur: No concerns reported Const General: no acute distress Nutritional Appearance: obese Orientation/consciousness: patient oriented x3 HENMT Mouth: moist mucous membranes Eyes General: appearance normal, both eyes and all related structures Neck Neck: Yes full ROM, Yes no lymphadenopathy and Yes supple Resp Effort & Inspection: normal respiratory effort and able to speak in complete sentences Auscultation: clear to auscultation bilaterally Cardio Rhythm: regular rhythm Heart sounds: S1 normal heart sound present and S2 normal heart sound present GI Inspection: Yes normal to inspection Palpation (GI): Soft to palpation, nontender and no masses Auscultation: normal bowel sounds Neuro General: patient oriented x3, gait normal, tone normal, moves all extremities, Normal light touch and pain sensation and no focal motor deficits Cognition (Neuro): normal cognition Gait exam (Neuro): Normal gait present Motor exam (neuro): 5/5 motor strength present throughout Extrem General: Yes normal to inspection, Yes full ROM, Yes no joint enlargement, Yes no pedal edema and Yes normal gait Psych Appearance: grossly normal Mental Status: mental status grossly normal Speech and movement: Normal speech and movement present Affect: normal affect Coding Level of Care Code Est Pt Level 4 (89783) Complex visit Add On G2211 Diagnoses Diabetes mellitus with hyperglycemia, without long-term current use of insulin E11.65 Class 2 obesity due to excess calories without serious comorbidity with body mass index (BMI) of 36.0 to 36.9 in adult E66.09; Z68.36 Obesity type: due to excess calories Obesity classification: adult class 2 (BMI 35 - 39.9) Serious obesity comorbidity presence: without serious comorbidity Body mass index: BMI 36.0-36.9 History of PCOS Z87.42 Assessment & Plan Assessment & Plan (1) Diabetes mellitus with hyperglycemia, without long-term current use of insulin: Code(s): E11.65 - Type 2 diabetes mellitus with hyperglycemia Category: Medical (2) Obesity: Code(s): E66.9 - Obesity, unspecified Category: Medical Qualifiers: Obesity type: due to excess calories Obesity classification: adult class 2 (BMI 35 - 39.9) Serious obesity comorbidity presence: without serious comorbidity Body mass index: BMI 36.0-36.9 Qualified Code(s): E66.09 - Other obesity due to excess calories; Z68.36 - Body mass index [BMI] 36.0-36.9, adult (3) History of PCOS: Code(s): Z87.42 - Personal history of other diseases of the female genital tract Plan 1. Type 2 Diabetes Mellitus and Obesity The patient has responded well to the initial one-month trial of Mounjaro 2.5 mg, with a 9-pound weight loss and only minor, tolerable side effects such as transient heartburn and occasional abdominal cramping. Her last HbA1c was 7.7. The plan is to continue the current dose and monitor for any new side effects. Plan: Continue Mounjaro 2.5 mg weekly for the next month. Provide a 14-day sample of a [employer] continuous glucose monitor (CGM) to assess blood sugar patterns and food triggers. Advised to set the low-glucose alarm to 60 mg/dL. The patient will communicate via the patient portal in early September to report on side effects and CGM data. If the medication is well-tolerated, the dose will be increased for the September prescription. Continue working with her photographer portrait on diet and exercise. Follow up in the clinic in October for re-evaluation and to check HbA1c. 2. Polycystic Ovary Syndrome (PCOS) and Fertility Planning The patient has a long-standing history of PCOS managed with oral contraceptives. The diagnosis was made clinically without ultrasound confirmation. She now desires future and has been advised by her gameplay programmer to see a specialist. Plan: Refer to a [employer] for further evaluation of PCOS and for fertility planning. Advised the patient to find an in-network provider through her insurance and to communicate the provider's information for the formal referral. Continue current oral contraceptive for symptom management. Patient was informed and verbally consented to the use of an ambient scribe for clinic note documentation during this visit.
[2025-09-05 11:30] VITALS: BP 110/74; PULSE 97; RESP 16; TEMP 36.7; O2SAT 98; BMI 41.1
--- OUTSIDE RECORDS SUMMARY | 2025-09-05 22:01 | XMS_ITS | Patient Health Record ---
Author Organization [facility] Address [address] [place] [address] Support Name Relationship Address Phone MADISYN MCCLURE Guarantor Unknown [phone] Reason For Referral No Information Medications Medication [...] Notes Problem Surveillance of oral contraception done ([id number]) Surveillance of previously prescribed contraceptive pill (V25.41) Active confirmed Diag Plan Of Treatment No Information Insurance Providers Payer Name Payer Address Payer Phone Subscriber Number Group Number Insured Name Patient Relationship to Insured Coverage Start Date Coverage End Date [employer] [address] [place] [id number] MADISYN MCCLURE Self - patient is the insured
--- OUTSIDE RECORDS SUMMARY | 2025-09-05 22:01 | XMS_ITS | Patient Health Record ---
Author [facility] Address [address] [place] [address] Care Team Providers Care Fish Packer Name Role Phone Romulo DONALDSON, Dunia Oviedo Primary Care Provider Un available Black, Arlene Unavailable [phone] Allergies Allergen (clinical drug ingredient) Drug/Non Drug [...] Provider Speciality Internal M edicine Referred Organization [facility] Referred Provider Arlene Evans Referred Address [address] [place], [place],[address],[place] Referred Provider Specialty Podiatry Referral Priority Routine [...] Problem Type II diabetes mellitus without complication ([id number]) Type 2 diabetes mellitus without complication (E11.9) Active confirmed Problem Plantar fascial fibromatosis (46915051) Plantar fasciitis, bilateral (M72.2) Active confirmed Vital Signs Blood pressure diastolic 80 mm Hg 08/06/2025 Height 5ft3in in 08/06/2025 Blood pressure systolic 132 mm Hg 08/06/2025 Weight 245 lbs 08/06/2025 BMI 43.4 kg/m2 08/06/2025 Procedures Procedure Date Ordered Date Performed Result Body Sit e 17006-TZFM SKIN LESIONS, 2 TO 4 08/06/2025 N/A Encounters Encounter Location Date Provider Diagnosis [address] [address] 08/06/2025 Arlene Nathan Type 2 diabetes mellitus [...] M60.872 and Bursitis of left foot M77.[address] [address] 08/06/2025 [facility] [address] 08/06/2025 Arlene Evans Assessments Encounter Date Diagnosis [...] Treatment Pending Test Test Name Order Date [id number]-Xhfdxnxw Plate 05/18/2016 28434-SYOF SKIN LESIONS, 2 TO 4 08/06/20 25 Next Appt Details Provider Name:Arlene Evans , 11/01/2025 10:15:00 AM, [address] [place], [address], Insurance Providers Payer Name Payer Address Payer Phone Subscriber Number Group Number Insured Name Patient Relationship to Insured Coverage Start Date Coverage End Date [employer] [place] [address] [place] [phone] [id number] Chandrakant Mor[place] Child - Insured has Financial Responsibility Medical (General) History Medical History History ICD Code Anxiety disorder Depression Headaches Migraines Chicken pox covid-19 Diabetic Psychiatric disorder Surgical History Surgery Date(Month/Year) oral surgery
--- OUTSIDE RECORDS SUMMARY | 2025-09-05 22:01 | XMS_ITS | Clinical Summary ---
Author Organization [facility] Address [address] [place] [id number] Phone Care Team Providers Care Riverboat Captain Name Role Phone Dunia Sebastian MD Primary [...] on patient's age to complete this topic IPV VACCINES Aged Out No longer eligi ble [...] topic Medical Devices Not on file Insurance [address] [place] [address] [facility] EX[employer] POS [address] [place] [address] [facility] [address] [place] [address] [facility] [address] [place] [address] [facility] [address] [place] [facility] [address] [place] [id number] [facility] [address] [place] [id number] [facility] [employer] [address] [place] [address] [facility] EXPLORER [address] [place] [address] [employer] EX[employer]ER POS Care Teams Riverboat Captain Relationship Specialty Start Date End Date Dunia Sebastian MD [address] [place] [address] PCP - General Internal Medicine 05/07/22 Additional Source Comments The information contained in this document represents components of the legal health record. It is not the complete legal health record.[facility]
== END 2025-09-05 12:10 | disposition home or self-care (01) ==
LOC: HO.HMCC 11:10
PROVIDERS: PCP Internal Medicine; Visit Provider Internal Medicine
DX: E11.65 Type 2 diabetes mellitus with hyperglycemia (principal); E66.09 Other obesity due to excess calories; Z68.36 Body mass index [BMI] 36.0-36.9, adult; Z87.42 Personal history of other diseases of the female genital tract